=== PATIENT | male | born 1945 | race Caucasian/White ===

== ENCOUNTER 2019-07-31 19:15 | Emergency (ER) | payer MEDICARE ==
[2019-07-31] MEDS ORDERED: NITROGLYCERIN SUBLINGUAL 0.4 MG BOTTLE OF 25. SL PRN (19:45)
[2019-07-31] MEDS ORDERED: ASPIRIN CHEWABLE 81 MG TABLET. PO ONE (19:45)
[2019-07-31 19:46] LABS: BASO % 1 % (0-3); EOS # 0.2 x10^3/uL (0.0-0.7); EOS % 2 % (0-3); HEMOGLOBIN 14.1 g/dL (13.0-17.5); LYMPH # 2.2 x10^3/uL (1.0-4.8); LYMPH % 28 % (24-48); MEAN CORPUSCULAR HEMOGLOBIN 32 pg (25-35); MEAN CORPUSCULAR HGB CONC 35 g/dL (31-37); MEAN CORPUSCULAR VOLUME 92 fL (79-100); MONO # 0.6 x10^3/uL (0.0-1.1); MONO % 8 % (0-9); NEUT # 4.9 x10^3/uL (1.8-7.7); NEUT % 62 % (31-73); PLATELET COUNT 232 x10^3/uL (140-400); RED BLOOD COUNT 4.44 x10^6/uL (4.30-5.70); RED CELL DISTRIBUTION WIDTH 14.3 % (11.5-14.5); WHITE BLOOD COUNT 7.9 x10^3/uL (4.0-11.0)
--- NOTE | 2019-07-31 19:54 | PHYS DOC ---
Adult General Chief Complaint Chief Complaint: CHEST PAIN HPI HPI 73-year-old male presents to the emergency department with complaints of chest pain. Patient states pain started this morning around 9 AM, nitroglycerin was taken at that time with pain relief. He states recurrent pain this afternoon with nitroglycerin relieving pain. However tonight patient states pain returned without relief after 2 nitroglycerin. Patient denies any nausea, vomiting, diarrhea, shortness of breath. He does have history of CABG as well as stent placements. Nothing makes his pain worse, nothing makes his pain better. Patient states given the continued pain he called 911. Pain is located in the center of his chest, no radiation. Review of Systems Review of Systems Constitutional: Denies fever or chills [] Respiratory: Denies cough or shortness of breath [] Cardiovascular: No additional information not addressed in HPI [] GI: Denies abdominal pain, nausea, vomiting, bloody stools or diarrhea [] Musculoskeletal: Denies back pain or joint pain [] Neurologic: Denies headache, focal weakness or sensory changes [] All other systems were reviewed and found to be within normal limits, except as documented in this note. Current Medications Current Medications Current Medications Medications (Trade) Dose Ordered Sig/[place] Start Time Stop Time Status Last Admin Dose Admin Aspirin (Children'S Aspirin) 324 mg 1X ONCE 07/31/19 19:45 07/31/19 19:46 DC Nitroglycerin (Nitrostat) 0.4 mg PRN Q5MIN PRN 07/31/19 19:45 08/01/19 19:44 Allergies Allergies Allergies Coded Allergies Type Severity Reaction Last Updated Verified No Known Drug Allergies 07/31/19 No Physical Exam Physical Exam Constitutional: Well developed, well nourished, no acute distress, non-toxic appearance. [] HENT: Normocephalic, atraumatic, bilateral external ears normal, oropharynx moist, no oral exudates, nose normal. [] Eyes: PERRLA, EOMI, conjunctiva normal, no discharge. [] Cardiovascular:Heart rate regular rhythm, no murmur [] Lungs & Thorax: Bilateral breath sounds clear to auscultation [] Abdomen: Bowel sounds normal, soft, no tenderness, no masses, no pulsatile masses. [] Skin: Warm, dry, no erythema, no rash. [] Back: No tenderness, no CVA tenderness. [] Extremities: No tenderness, no edema. [] Neurologic: Alert and oriented X 3, no focal deficits noted. [] Psychologic: Affect normal, judgement normal, mood normal. [] Current Patient Data Vital Signs Vital Signs Date Time Temp Pulse Resp B/P (MAP) Pulse Ox O2 Delivery O2 Flow Rate FiO2 07/31/19 19:17 97.9 78 20 117/66 (83) 97 Room Air 97.9 Lab Values Laboratory Tests Test 07/31/19 19:25 White Blood Count 7.9 x10^3/uL (4.0-11.0) Red Blood Count 4.44 x10^6/uL (4.30-5.70) Hemoglobin 14.1 g/dL (13.0-17.5) Hematocrit 41.0 % (39.0-53.0) Mean Corpuscular Volume 92 fL (79-100) Mean Corpuscular Hemoglobin 32 pg (25-35) Mean Corpuscular Hemoglobin Concent 35 g/dL (31-37) Red Cell Distribution Width 14.3 % (11.5-14.5) Platelet Count 232 x10^3/uL (140-400) Neutrophils (%) (Auto) 62 % (31-73) Lymphocytes (%) (Auto) 28 % (24-48) Monocytes (%) (Auto) 8 % (0-9) Eosinophils (%) (Auto) 2 % (0-3) Basophils (%) (Auto) 1 % (0-3) Neutrophils # (Auto) 4.9 x10^3/uL (1.8-7.7) Lymphocytes # (Auto) 2.2 x10^3/uL (1.0-4.8) Monocytes # (Auto) 0.6 x10^3/uL (0.0-1.1) Eosinophils # (Auto) 0.2 x10^3/uL (0.0-0.7) Basophils # (Auto) 0.0 x10^3/uL (0.0-0.2) Sodium Level 140 mmol/L (136-145) Potassium Level 4.0 mmol/L (3.5-5.1) Chloride Level 102 mmol/L (98-107) Carbon Dioxide Level 34 mmol/L (21-32) H Anion Gap 4 (6-14) L Blood Urea Nitrogen 19 mg/dL (8-26) Creatinine 0.9 mg/dL (0.7-1.3) Estimated GFR (Cockcroft-Gault) 82.3 BUN/Creatinine Ratio 21 (6-20) H Glucose Level 107 mg/dL (70-99) H Calcium Level 8.8 mg/dL (8.5-10.1) Magnesium Level 2.1 mg/dL (1.8-2.4) Total Bilirubin 0.4 mg/dL (0.2-1.0) Aspartate Amino Transferase (AST) 30 U/L (15-37) Alanine Aminotransferase (ALT) 39 U/L (16-63) Alkaline Phosphatase 84 U/L (46-116) Troponin I Quantitative < 0.017 ng/mL (0.000-0.055) JB-Uoc-Q-Type Natriuretic Peptide 300 pg/mL (0-449) Total Protein 6.5 g/dL (6.4-8.2) Albumin 3.8 g/dL (3.4-5.0) Albumin/Globulin Ratio 1.4 (1.0-1.7) Laboratory Tests 07/31/19 19:25 Laboratory Tests 07/31/19 19:25 EKG EKG EKG reviewed, normal sinus rhythm, heart rate 78, normal axis, no STEMI interpretation time 1919[] Radiology/Procedures Radiology/Procedures [] Course & Med Decision Making Course & Med Decision Making Pertinent Labs and Imaging studies reviewed. (See chart for details) []73-year-old male presents to the emergency department with complaints of chest pain. Patient states pain started this morning around 9 AM, nitroglycerin was taken at that time with pain relief. He states recurrent pain this afternoon with nitroglycerin relieving pain. However tonight patient states pain returned without relief after 2 nitroglycerin. Patient denies any nausea, vomiting, diarrhea, shortness of breath. He does have history of CABG as well as stent placements. Nothing makes his pain worse, nothing makes his pain better. Patient states given the continued pain he called 911. Pain is located in the center of his chest, no radiation. Labs reviewed Trop negative x 1 HEART Score 5 Recommend staying in the hospital for observation however patient declines Patient will be asked to sign out against medical advice Discussed with family at bedside Dragon Disclaimer Dragon Disclaimer This electronic medical record was generated, in whole or in part, using a voice recognition dictation system. Departure Departure Impression: Primary Impression: Chest pain Additional Impression: CAD (coronary artery disease) Disposition: 07 AGAINST MEDICAL ADVICE Referrals: RAYNA BASHIR MD (PCP) Patient Instructions: Chest Pain (Nonspecific) Additional Instructions: Recommend follow up with PCP 3 - 5 days Return to the ER with worsening symptoms, intractable pain, fever, altered mental status Tylenol/Motrin as needed for pain Recommend admission however patient declines - will sign AMA form Problem Qualifiers Primary Impression: Chest pain Chest pain type: unspecified Qualified Codes: R07.9 - Chest pain, unspecified Additional Impression: CAD (coronary artery disease) Coronary Disease-Associated Artery/Lesion type: unspecified vessel or lesion type [place] vs. transplanted heart: unspecified whether [place] or transplanted heart Associated angina: with unspecified angina Qualified Codes: I25.119 - Atherosclerotic heart disease of [place] coronary artery with unspecified angina pectoris DARIUSZ SIMPSON MD Jul 31, 2019 19:54
[2019-07-31 19:57] LABS: CALCIUM 8.8 mg/dL (8.5-10.1); CREATININE 0.9 mg/dL (0.7-1.3); GFR 82.3
[2019-07-31 20:03] LABS: ALBUMIN 3.8 g/dL (3.4-5.0); ALBUMIN/GLOBULIN RATIO 1.4 (1.0-1.7); MAGNESIUM 2.1 mg/dL (1.8-2.4); TOTAL BILIRUBIN 0.4 mg/dL (0.2-1.0); TOTAL PROTEIN 6.5 g/dL (6.4-8.2)
--- NOTE | 2019-07-31 20:24 | RAD ---
AP chest. HISTORY: Chest pain AP view was taken of the chest. Lungs are clear. Heart is normal in size. There is no pleural effusion. There is mild scoliosis. Patient previous bypass. IMPRESSION: 1. No acute infiltrates or acute chest disease. Electronically signed by: Xavi Goldberg MD (07/31/2019 8:21 PM) [facility]
[2019-07-31 21:01] VITALS: BP 119/63
--- NOTE | 2019-08-01 06:51 | EKG ---
[facility] [address] [place] [address] Test Date: 2019-07-31 Test Time: 19:20:10 Pat Name: CHA DODGE Department: Room: Gender: M [employer]: : 1945 Requested By: DARIUSZ SIMPSON Order Number: [id number] Reading MD: Measurements Intervals Gypsy Rate: 77 P: 64 CT: 146 QRS: 77 QRSD: 102 T: 98 QT: 382 QTc: 439 Interpretive Statements SINUS RHYTHM NON SPECIFIC T ABNORMALITY BORDERLINE ECG No previous ECG available for comparison
== END 2019-07-31 21:25 | disposition left against medical advice (07) ==
LOC: ER 19:15
DX: I25.119 Atherosclerotic heart disease of native coronary artery with unspecified angina pectoris (principal); R07.89 Other chest pain; Z95.1 Presence of aortocoronary bypass graft; Z95.5 Presence of coronary angioplasty implant and graft
CPT/HCPCS: 36415; 71045; 80053; 83735; 83880; 84484; 85025; 93005; 99285-25

== ENCOUNTER 2021-03-24 12:00 | Inpatient (IN) | payer MEDICARE ==
[~2021-03-24] VITALS: Ht 175.3 cm; Wt 56.9 kg
--- NOTE | 2021-03-24 12:35 | PHYS DOC ---
Past Medical History Past Medical History: CAD Past Surgical History: Other Additional Past Surgical Histo: CABG Smoking Status: Current Every Day Smoker Alcohol Use: None General Adult EDM: Chief Complaint: FEVER HPI: HPI: 75-year-old male presents to the emergency department complaining of chest pain that was episodic and occurred around 0 700 this morning and was transient. He reports the pain subsided after few minutes. He reports deep breathing made the pain worse. He currently does not have chest pain and denies any further episodes of chest pain after this initial occurrence at 7 AM. She has a history of CABG, CAD, everyday smoking, chronic shortness of breath. The patient denies radiation of pain, sweating, shortness of air, nausea, vomiting, palpitations or dizziness. The patient denies any history of blood clots in his legs or his lungs, no personal history of any cancers or clotting disorders. He is adamantly refusing admission Review of Systems: Review of Systems: ROS otherwise negative except for what was mentioned in the HPI Heart Score: C/O Chest Pain: Yes HEART Score for Chest Pain: HEART Score for Chest Pain Response (Comments) Value History Moderately Suspicious 1 Age > 65 2 Risk Factors >3 Risk Factors or Hx CAD 2 Troponin < Normal Limit 0 Total 5 Allergies: Allergies: Allergies Coded Allergies Type Severity Reaction Last Updated Verified No Known Drug Allergies 03/24/21 No Physical Exam: PE: Constitutional: No acute distress, non-toxic appearance. HENT: Atraumatic, bilateral external ears normal, nose normal. Eyes: PERRLA, EOMI, conjunctiva normal, no discharge. Neck: Normal range of motion, supple, no stridor. Cardiovascular: Heart rate regular rhythm. 2+ radial pulses Lungs & Thorax: No respiratory distress, symmetrical expansion. Bilateral breath sounds clear to auscultation Abdomen: Soft, no tenderness Skin: Warm, dry. Extremities: No tenderness, no cyanosis, ROM intact, no edema. Neurologic: Alert and oriented X 3, normal motor function, normal sensory function, no focal deficits noted. Non ataxic gait. GCS 15. Psychologic: Affect normal, judgment normal, mood normal. Current Patient Data: Labs: Laboratory Tests Test 03/24/21 13:12 White Blood Count 7.7 x10^3/uL (4.0-11.0) Red Blood Count 4.78 x10^6/uL (4.30-5.70) Hemoglobin 14.8 g/dL (13.0-17.5) Hematocrit 43.4 % (39.0-53.0) Mean Corpuscular Volume 91 fL (79-100) Mean Corpuscular Hemoglobin 31 pg (25-35) Mean Corpuscular Hemoglobin Concent 34 g/dL (31-37) Red Cell Distribution Width 14.5 % (11.5-14.5) Platelet Count 165 x10^3/uL (140-400) Neutrophils (%) (Auto) 85 % (31-73) Lymphocytes (%) (Auto) 9 % (24-48) Monocytes (%) (Auto) 6 % (0-9) Eosinophils (%) (Auto) 1 % (0-3) Basophils (%) (Auto) 1 % (0-3) Neutrophils # (Auto) 6.5 x10^3/uL (1.8-7.7) Lymphocytes # (Auto) 0.7 x10^3/uL (1.0-4.8) Monocytes # (Auto) 0.4 x10^3/uL (0.0-1.1) Eosinophils # (Auto) 0.0 x10^3/uL (0.0-0.7) Basophils # (Auto) 0.1 x10^3/uL (0.0-0.2) D-Dimer (Missy) 0.43 ug/mlFEU (0.00-0.50) Sodium Level 140 mmol/L (136-145) Potassium Level 4.1 mmol/L (3.5-5.1) Chloride Level 104 mmol/L (98-107) Carbon Dioxide Level 28 mmol/L (21-32) Anion Gap 8 (6-14) Blood Urea Nitrogen 23 mg/dL (8-26) Creatinine 0.9 mg/dL (0.7-1.3) Estimated GFR (Cockcroft-Gault) 81.8 Glucose Level 104 mg/dL (70-99) Calcium Level 8.8 mg/dL (8.5-10.1) Troponin I Quantitative < 0.017 ng/mL (0.000-0.055) KO-Gsv-P-Type Natriuretic Peptide 545 pg/mL (0-449) Vital Signs: Vital Signs Date Time Temp Pulse Resp B/P (MAP) Pulse Ox O2 Delivery O2 Flow Rate FiO2 03/24/21 12:04 100.6 122 22 150/71 94 Room Air 100.6 EKG: EKG: Sinus tachycardia rate of 120, no ST-T wave changes, no ectopic beats, normal axis, normal FL, QRS, and QTc intervals. Impression: Sinus tachycardia, no STEMI interpreted by Geraldine araiza D.O. Radiology/Procedures: Radiology/Procedures: PROCEDURE: PORTABLE CHEST 1V XR CHEST 1V CLINICAL INDICATIONS: Reason: chest pain / Spl. Instructions: / History: COMPARISON: July 31, 2019. Findings: Medial right upper lobe lung infiltrate is seen. No new lung infiltrate is seen on the left side. No pleural effusion or pneumothorax is apparent. Hyperinflation is seen consistent with COPD. A sternotomy is evident. The heart size, pulmonary vasculature, mediastinum and both raheel are stable. IMPRESSION: Medial right upper lobe lung infiltrate. Electronically signed by: Elijah Hart MD (03/24/2021 1:09 PM) Course & Med Decision Making: Course & Med Decision Making Patient with pneumonia in the right lung, no risk factors for HCAP, heart rate remained persistently tachycardic after gentle fluids in the emergency department. We will admit the patient to the hospital, family is in agreement with the plan. Patient was convinced by family to stay in the hospital for further care. Patient with negative D-dimer as above, low risk for PE given this. Patient be admitted to Dr. Nii Preciado - GERALDINE HODGE DO Procedure Category Date Status Time Vital Signs Monitoring ER 03/24/21 Transmitted 12:32 Blood Pressure ER 03/24/21 Transmitted Monitoring 12:32 Cardiac Monitoring ER 03/24/21 Transmitted 12:32 Basic Metabolic Panel LAB 03/24/21 Complete 12:32 Cbc W Autodiff LAB 03/24/21 Complete 12:32 D-Dimer LAB 03/24/21 Complete 12:32 Portable Chest 1v RAD 03/24/21 Resulted 12:32 Nt-Pro Bnp LAB 03/24/21 Complete 12:32 Troponini LAB 03/24/21 Complete 12:32 Troponini LAB 03/24/21 Complete 15:32 Troponini LAB 03/24/21 Logged 18:32 12 Lead Ekg EKG 03/24/21 In Process 12:33 Iv Ringers,Lactated PHA 03/24/21 Complete 500ml (Iv Lactated R 12:45 Iv Ringers,Lactated PHA 03/24/21 Complete 500ml (Iv Lactated R 14:00 Sars Cov2 (Laquita) LAB 03/24/21 In Process 13:58 Sars Antigen Ann-Marie Rapid LAB 03/24/21 Logged 13:58 Fentanyl Pf Vial PHA 03/24/21 Complete (Fentanyl 2ml Vial) 15:30 Azithrmycn 500mg Ivpb PHA 03/24/21 In Process For Omni (Zithroma 16:30 Lactic Acid With LAB 03/24/21 Logged Reflex 16:18 Blood Culture CASTRO 03/24/21 Logged 16:18 Iv Ringers,Lactated PHA 03/24/21 In Process 500ml (Iv Lactated R 16:30 Er Bridge Order ADT 03/24/21 Transmitted 16:21 Code Status CODE 03/24/21 Transmitted 16:21 Vital Signs, Per Unit TRINI 03/24/21 In Process Protocol 16:21 Regular DIET 03/24/21 Transmitted Dinner Ambulate With TRINI 03/24/21 In Process Assistance 16:21 Cbc W Autodiff LAB 03/25/21 Verified 06:00 Basic Metabolic Panel LAB 03/25/21 Verified 06:00 Ondansetron Pf PHA 03/24/21 In Process (Zofran) 16:30 Fentanyl Pf Vial PHA 03/24/21 In Process (Fentanyl 2ml Vial) 16:30 Acetaminophen PHA 03/24/21 In Process (Tylenol) 16:30 Consult Physician By CONS 03/24/21 Transmitted Name 16:21 Ceftriaxone Iv Push PHA 03/24/21 In Process (Rocephin) 16:30 Departure Departure Impression: Primary Impression: Community acquired pneumonia Disposition: ADMITTED INPATIENT Admitting Physician: BECKA Chavez) Condition: STABLE Referrals: RAYNA BASHIR MD (PCP) GERALDINE HODGE DO Mar 24, 2021 12:35
[2021-03-24] MEDS ORDERED: IV RINGERS,LACTATED 500ML 500 ML IV ONE ×3 (12:45→16:30)
--- NOTE | 2021-03-24 13:11 | RAD ---
XR CHEST 1V CLINICAL INDICATIONS: Reason: chest pain / Spl. Instructions: / History: COMPARISON: July 31, 2019. Findings: Medial right upper lobe lung infiltrate is seen. No new lung infiltrate is seen on the left side. No pleural effusion or pneumothorax is apparent. Hyperinflation is seen consistent with COPD. A sternotomy is evident. The heart size, pulmonary vasculature, mediastinum and both raheel are stable. IMPRESSION: Medial right upper lobe lung infiltrate. Electronically signed by: Elijah Hart MD (03/24/2021 1:09 PM) [id number]
[2021-03-24 13:20] LABS: BASO # 0.1 x10^3/uL (0.0-0.2); BASO % 1 % (0-3); EOS % 1 % (0-3); HEMATOCRIT 43.4 % (39.0-53.0); HEMOGLOBIN 14.8 g/dL (13.0-17.5); LYMPH # 0.7 x10^3/uL (1.0-4.8); LYMPH % 9 % (24-48); MEAN CORPUSCULAR HEMOGLOBIN 31 pg (25-35); MEAN CORPUSCULAR HGB CONC 34 g/dL (31-37); MEAN CORPUSCULAR VOLUME 91 fL (79-100); MONO # 0.4 x10^3/uL (0.0-1.1); MONO % 6 % (0-9); NEUT # 6.5 x10^3/uL (1.8-7.7); NEUT % 85 % (31-73); PLATELET COUNT 165 x10^3/uL (140-400); RED BLOOD COUNT 4.78 x10^6/uL (4.30-5.70); RED CELL DISTRIBUTION WIDTH 14.5 % (11.5-14.5); WHITE BLOOD COUNT 7.7 x10^3/uL (4.0-11.0)
[2021-03-24 13:35] LABS: CALCIUM 8.8 mg/dL (8.5-10.1); CREATININE 0.9 mg/dL (0.7-1.3); GFR 81.8; POTASSIUM 4.1 mmol/L (3.5-5.1)
[2021-03-24] MEDS ORDERED: fentaNYL PF VIAL 100 MCG/2 ML VIAL ONE (15:29)
[2021-03-24] MEDS ORDERED: fentaNYL PF VIAL 100 MCG/2 ML VIAL IVP ONE (15:30)
[2021-03-24] MEDS ORDERED: ACETAMINOPHEN 500 MG TABLET PO ONE (16:30)
[2021-03-24] MEDS ORDERED: ACETAMINOPHEN 325 MG TABLET. PO PRN (16:30)
[2021-03-24] MEDS ORDERED: ONDANSETRON PF 4 MG/2 ML VIAL. IVP PRN (16:30)
[2021-03-24] MEDS ORDERED: fentaNYL PF VIAL 100 MCG/2 ML VIAL IVP PRN (16:30)
[2021-03-24] MEDS ORDERED: AZITHRMYCN 500MG IVPB FOR OMNI 250 ML IV ONE (16:30)
[2021-03-24] MEDS ORDERED: cefTRIAXone IV Push 2 GM VIAL. IVP ONE (16:30)
[2021-03-24 18:26] VITALS: BP 96/63
--- NOTE | 2021-03-24 18:45 | HP ---
ADMIT DATE: 03/24/2021 CHIEF COMPLAINT: Shortness of breath and cough. HISTORY OF PRESENT ILLNESS: The patient is a pleasant 75-year-old male who presented to the ER with shortness of breath and cough. It has been occurring since 7:00 this morning. He increased his home meds, but has not working. The pain makes it worse. He does have associated chest pain, rated at 6/10. The patient does have a history of bypass surgery. We did imaging that showing he has pneumonia in the right middle lobe. His COVID test is negative. I discussed the case with ER physician and the patient's correspondence transcriber, his niece and she is here with him and seems to be good support for him. We are going admit the patient, give him IV antibiotics and breathing treatments, oxygen. 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 ALLERGIES: None. FAMILY HISTORY: Diabetes. SOCIAL HISTORY: He smokes. No drink or drugs. MEDICATIONS: Reviewed, please refer to the MRAD. REVIEW OF SYSTEMS: Unable to obtain. The patient is now sedated. We did give him some pain medicine, some fentanyl here in the ER. PHYSICAL EXAMINATION: VITALS: Within normal limits and are stable. GENERAL: He is sedated. HEENT: Normal cephalic atraumatic, external auditory canals are patent EYES: Extraocular muscles are intact, pupils are equally round and reactive to light and accommodation MUSCULOSKELETAL: Well developed, well nourished, good range of motion ENDOCRINE: No thyromegaly was palpated LYMPHATICS: No cervical chain or axillary nodes were noted HEMATOPOIETIC: No bruising NECK: Supple, no JVD, no thyromegaly was noted. LUNGS: He has decreased breath sounds with some crackles on the right. HEART: RRR, S1, S2 present. Peripheral pulses intact, no obvious murmurs were noted. ABDOMEN: Soft, nontender. Positive bowel sounds no organomegaly, normal bowel sounds. EXTREMITIES: Without any cyanosis, clubbing, or edema. Pedal pulses intact, Homans sign is negative. NEUROLOGIC: He is sedated. PSYCHIATRIC: He is sedated. SKIN: No ulcerations or rashes, good skin turgor, no jaundice. VASCULAR: Good capillary refill, neurovascular bundle appears to be intact. LABORATORY DATA: White count 7, hemoglobin 14.8, platelets 165. Electrolytes are normal. Troponin is 0. BNP 545. COVID testing is negative. Chest x-ray shows middle right upper lobe infiltrate. ASSESSMENT AND PLAN: Pneumonia. The patient has been admitted. We will start IV antibiotics, breathing treatments, oxygen, home meds, deep venous thrombosis prophylaxis. Full code. Long-term prognosis is guarded. We will consult Pulmonary Medicine for a second opinion. YESSY DR: Graham TID: [id number]
[2021-03-24] MEDS ORDERED: PILO5TAB11 PO (20:42)
[2021-03-24] MEDS ORDERED: MELO15TA23 PO (20:42)
[2021-03-24] MEDS ORDERED: METO50TA6 PO (20:42)
[2021-03-24] MEDS ORDERED: TAMS0.4C97 PO (20:42)
[2021-03-24] MEDS ORDERED: ALBU1.25 NEB (20:42)
[2021-03-24] MEDS ORDERED: TIOT18CA IH (20:42)
[2021-03-24] MEDS ORDERED: BUPR150T21 PO (20:42)
[2021-03-24] MEDS ORDERED: NITR0.4T22 SL (20:42)
[2021-03-24] MEDS ORDERED: FLUT1BLS10 IH (20:42)
[2021-03-24] MEDS ORDERED: CHOL10004 PO (20:42)
[2021-03-24] MEDS ORDERED: FLUT9.9S NS (20:42)
[2021-03-24] MEDS ORDERED: ROSU20TA28 PO (20:42)
[2021-03-24] MEDS ORDERED: ALEN70TA71 PO (20:42)
[2021-03-24] MEDS ORDERED: OMEP20TA63 PO (20:42)
[2021-03-24] MEDS ORDERED: ASPI-630 PO (20:42)
[2021-03-24] MEDS: IPRATRPIUM/ALBUTEROL 0.5/2.5MG 3 ML NEBU. NEB SCH (22:28)
[2021-03-24 23:00] VITALS: BP 107/57
[2021-03-25] MEDS: ACETAMINOPHEN 325 MG TABLET. PO PRN ×2 (00:39→21:45)
[2021-03-25 03:00] VITALS: BP 100/55
[2021-03-25 06:20] LABS: BASO % 0 % (0-3); EOS % 0 % (0-3); HEMATOCRIT 40.1 % (39.0-53.0); HEMOGLOBIN 13.7 g/dL (13.0-17.5); LYMPH # 0.6 x10^3/uL (1.0-4.8); LYMPH % 21 % (24-48); MEAN CORPUSCULAR HEMOGLOBIN 31 pg (25-35); MEAN CORPUSCULAR HGB CONC 34 g/dL (31-37); MEAN CORPUSCULAR VOLUME 91 fL (79-100); MONO # 0.2 x10^3/uL (0.0-1.1); MONO % 6 % (0-9); NEUT # 1.9 x10^3/uL (1.8-7.7); NEUT % 72 % (31-73); PLATELET COUNT 146 x10^3/uL (140-400); RED CELL DISTRIBUTION WIDTH 15.1 % (11.5-14.5); WHITE BLOOD COUNT 2.6 x10^3/uL (4.0-11.0)
[2021-03-25 06:44] LABS: CALCIUM 8.3 mg/dL (8.5-10.1); CREATININE 1.2 mg/dL (0.7-1.3); GFR 58.7; POTASSIUM 4.2 mmol/L (3.5-5.1)
[2021-03-25 07:00] VITALS: BP 109/66
[2021-03-25] MEDS: BUDESONIDE 0.5 MG/2 ML NEBU. NEB SCH ×2 (08:01→20:14)
[2021-03-25] MEDS: IPRATRPIUM/ALBUTEROL 0.5/2.5MG 3 ML NEBU. NEB SCH ×4 (08:01→20:15)
[2021-03-25] MEDS: PILOCARPINE 5 MG TABLET. PO SCH ×3 (08:34→21:45)
[2021-03-25] MEDS: buPROPion XL 150 MG TAB.ER.24H. PO SCH ×2 (08:34→21:46)
[2021-03-25] MEDS: PANTOPRAZOLE 40 MG TABLET.DR. PO SCH (08:35)
[2021-03-25] MEDS: MELOXICAM 7.5 MG TABLET PO SCH (08:35)
[2021-03-25] MEDS: CHOLECALCIFEROL (VITAMIN D3) 1,000 UNIT TABLET PO SCH (08:35)
[2021-03-25] MEDS: ASPIRIN CHEWABLE 81 MG TABLET. PO SCH (08:35)
[2021-03-25] MEDS: FLUTICASONE 50MCG/NASAL SPRAY 16GM BOTTLE. NS SCH (08:37)
[2021-03-25] MEDS ORDERED: NON FORMULARY ITEM (Albuterol Sulfate (Albuterol Sulfate Neb Soln) 1 VIAL) NEB SCH (09:00)
[2021-03-25] MEDS ORDERED: NON FORMULARY ITEM (Tiotropium Bromide (Spiriva) 1 CAP) IH SCH (09:00)
--- NOTE | 2021-03-25 09:54 | PDOC ---
PROGRESS NOTES Date of Service: DATE: 03/25/21 TIME: 09:52 Chief Complaint Chief Complaint ASSESSMENT AND PLAN: Pneumonia. PLAN admitted. IV antibiotics, breathing treatments, oxygen support, home meds, deep venous thrombosis prophylaxis. Full code. Long-term prognosis is guarded. consult Pulmonary Medicine History of Present Illness History of Present Illness CHIEF COMPLAINT: Shortness of breath and cough. HISTORY OF PRESENT ILLNESS: 75-year-old male who presented to the ER with shortness of breath and cough. It has been occurring since 7:00 9-2 He increased his home meds, but has not working. The pain makes it worse. He does have associated chest pain, rated at 6/10. The patient does have a history of bypass surgery. We did imaging that showing he has pneumonia in the right middle lobe. His COVID test is negative. 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 ALLERGIES: None. FAMILY HISTORY: Diabetes. SOCIAL HISTORY: He smokes. No drink or drugs. MEDICATIONS: Reviewed, please refer to the MRAD. REVIEW OF SYSTEMS: Unable to obtain. Vitals Vitals Vital Signs Date Time Temp Pulse Resp B/P (MAP) Pulse Ox O2 Delivery O2 Flow Rate FiO2 03/25/21 08:36 Room Air 2.0 03/25/21 08:05 91 03/25/21 07:00 98.4 110 18 109/66 (80) 98.4 Physical Exam Physical Exam GENERAL: He is sedated. HEENT: Normal cephalic atraumatic, external auditory canals are patent EYES: Extraocular muscles are intact, pupils are equally round and reactive to light and accommodation MUSCULOSKELETAL: Well developed, well nourished, good range of motion ENDOCRINE: No thyromegaly was palpated LYMPHATICS: No cervical chain or axillary nodes were noted HEMATOPOIETIC: No bruising NECK: Supple, no JVD, no thyromegaly was noted. LUNGS: He has decreased breath sounds with some crackles on the right. HEART: RRR, S1, S2 present. Peripheral pulses intact, no obvious murmurs were noted. ABDOMEN: Soft, nontender. Positive bowel sounds no organomegaly, normal bowel sounds. EXTREMITIES: Without any cyanosis, clubbing, or edema. Pedal pulses intact, Homans sign is negative. NEUROLOGIC: He is sedated. PSYCHIATRIC: He is sedated. SKIN: No ulcerations or rashes, good skin turgor, no jaundice. VASCULAR: Good capillary refill, neurovascular bundle appears to be intact. Extremities: No cyanosis Labs LABS talk about your own wishes for healthcare in case youre ever not able to tell your loved ones or healthcare team what your wishes are. If you became really sick tomorrow, would your loved ones or healthcare team know what your wishes were? Here are some examples of different sets of goals and health care directives for your conversations: My wish is to use all medical therapies including resuscitation (such as CPR) and artificial life-sustaining treatments (such as machines and medicine) in an intensive care unit, to keep me alive if at all possible. My wish is to live as long as possible, but I dont want attempts to bring me back to life if my heart and breathing stop. I would like full medical care but without using resuscitation or artificial life-sustaining intensive treatments, if these are unlikely to make me live longer or restore me to a certain quality of life. I will accept treatments that try to fix medical problems, but if Im not getting better or going to have a certain quality of life, I would want to switch to focusing only on my comfort and letting my happen naturally. My wish is for healthcare to focus on my comfort and lessen suffering. I would like medical care that focuses only on my quality of life and that allows me to naturally. Consider: What does a good quality of life mean for me? For many people, it is the ability to live independently and tell their own story. I may define it differently. Under what circumstances would I not want to be kept alive by medical treatments, resuscitation, or intensive care? What kind of changes to my health or life might make me change my mind? If I clearly am facing the last chapter of my life, how do I want the story to end? Who do I want to speak for me if I cant speak for myself? Do they und erstand my preferences? Are they willing to assume the role of my Durable Power of Pin Inserter Regulator? Can I change my Goals of Care Designation? Yes, your Goals of Care Designation can be changed at any time. It should be reviewed if: your health condition changes your circumstances change (such as new understanding) you are transferred or admitted to another healthcare setting dpoa review, to pt portal 16 min and question review Laboratory Tests Test 03/24/21 13:12 03/24/21 15:35 03/24/21 16:05 03/24/21 17:00 White Blood Count 7.7 x10^3/uL (4.0-11.0) Red Blood Count 4.78 x10^6/uL (4.30-5.70) Hemoglobin 14.8 g/dL (13.0-17.5) Hematocrit 43.4 % (39.0-53.0) Mean Corpuscular Volume 91 fL (79-100) Mean Corpuscular Hemoglobin 31 pg (25-35) Mean Corpuscular Hemoglobin Concent 34 g/dL (31-37) Red Cell Distribution Width 14.5 % (11.5-14.5) Platelet Count 165 x10^3/uL (140-400) Neutrophils (%) (Auto) 85 % (31-73) Lymphocytes (%) (Auto) 9 % (24-48) Monocytes (%) (Auto) 6 % (0-9) Eosinophils (%) (Auto) 1 % (0-3) Basophils (%) (Auto) 1 % (0-3) Neutrophils # (Auto) 6.5 x10^3/uL (1.8-7.7) Lymphocytes # (Auto) 0.7 x10^3/uL (1.0-4.8) Monocytes # (Auto) 0.4 x10^3/uL (0.0-1.1) Eosinophils # (Auto) 0.0 x10^3/uL (0.0-0.7) Basophils # (Auto) 0.1 x10^3/uL (0.0-0.2) D-Dimer (Missy) 0.43 ug/mlFEU (0.00-0.50) Sodium Level 140 mmol/L (136-145) Potassium Level 4.1 mmol/L (3.5-5.1) Chloride Level 104 mmol/L (98-107) Carbon Dioxide Level 28 mmol/L (21-32) Anion Gap 8 (6-14) Blood Urea Nitrogen 23 mg/dL (8-26) Creatinine 0.9 mg/dL (0.7-1.3) Estimated GFR (Cockcroft-Gault) 81.8 Glucose Level 104 mg/dL (70-99) Calcium Level 8.8 mg/dL (8.5-10.1) Troponin I Quantitative < 0.017 ng/mL (0.000-0.055) < 0.017 ng/mL (0.000-0.055) MF-Tac-U-Type Natriuretic Peptide 545 pg/mL (0-449) SARS-CoV-2 Antigen (Rapid) Negative (NEGATIVE) Lactic Acid Level 2.1 mmol/L (0.4-2.0) Test 03/24/21 20:50 03/25/21 05:30 Lactic Acid Level 2.5 mmol/L (0.4-2.0) Troponin I Quantitative < 0.017 ng/mL (0.000-0.055) White Blood Count 2.6 x10^3/uL (4.0-11.0) Red Blood Count 4.40 x10^6/uL (4.30-5.70) Hemoglobin 13.7 g/dL (13.0-17.5) Hematocrit 40.1 % (39.0-53.0) Mean Corpuscular Volume 91 fL (79-100) Mean Corpuscular Hemoglobin 31 pg (25-35) Mean Corpuscular Hemoglobin Concent 34 g/dL (31-37) Red Cell Distribution Width 15.1 % (11.5-14.5) Platelet Count 146 x10^3/uL (140-400) Neutrophils (%) (Auto) 72 % (31-73) Lymphocytes (%) (Auto) 21 % (24-48) Monocytes (%) (Auto) 6 % (0-9) Eosinophils (%) (Auto) 0 % (0-3) Basophils (%) (Auto) 0 % (0-3) Neutrophils # (Auto) 1.9 x10^3/uL (1.8-7.7) Lymphocytes # (Auto) 0.6 x10^3/uL (1.0-4.8) Monocytes # (Auto) 0.2 x10^3/uL (0.0-1.1) Eosinophils # (Auto) 0.0 x10^3/uL (0.0-0.7) Basophils # (Auto) 0.0 x10^3/uL (0.0-0.2) Sodium Level 139 mmol/L (136-145) Potassium Level 4.2 mmol/L (3.5-5.1) Chloride Level 104 mmol/L (98-107) Carbon Dioxide Level 26 mmol/L (21-32) Anion Gap 9 (6-14) Blood Urea Nitrogen 35 mg/dL (8-26) Creatinine 1.2 mg/dL (0.7-1.3) Estimated GFR (Cockcroft-Gault) 58.7 Glucose Level 81 mg/dL (70-99) Calcium Level 8.3 mg/dL (8.5-10.1) Assessment and Plan Assessmemt and Plan Problems Medical Problems: (1) Community acquired pneumonia Status: Acute Comment Review of Relevant I have reviewed the following items adriane (where applicable) has been applied. Labs Laboratory Tests Test 03/24/21 13:12 03/24/21 15:35 03/24/21 16:05 03/24/21 17:00 White Blood Count 7.7 x10^3/uL (4.0-11.0) Red Blood Count 4.78 x10^6/uL (4.30-5.70) Hemoglobin 14.8 g/dL (13.0-17.5) Hematocrit 43.4 % (39.0-53.0) Mean Corpuscular Volume 91 fL (79-100) Mean Corpuscular Hemoglobin 31 pg (25-35) Mean Corpuscular Hemoglobin Concent 34 g/dL (31-37) Red Cell Distribution Width 14.5 % (11.5-14.5) Platelet Count 165 x10^3/uL (140-400) Neutrophils (%) (Auto) 85 % (31-73) Lymphocytes (%) (Auto) 9 % (24-48) Monocytes (%) (Auto) 6 % (0-9) Eosinophils (%) (Auto) 1 % (0-3) Basophils (%) (Auto) 1 % (0-3) Neutrophils # (Auto) 6.5 x10^3/uL (1.8-7.7) Lymphocytes # (Auto) 0.7 x10^3/uL (1.0-4.8) Monocytes # (Auto) 0.4 x10^3/uL (0.0-1.1) Eosinophils # (Auto) 0.0 x10^3/uL (0.0-0.7) Basophils # (Auto) 0.1 x10^3/uL (0.0-0.2) D-Dimer (Missy) 0.43 ug/mlFEU (0.00-0.50) Sodium Level 140 mmol/L (136-145) Potassium Level 4.1 mmol/L (3.5-5.1) Chloride Level 104 mmol/L (98-107) Carbon Dioxide Level 28 mmol/L (21-32) Anion Gap 8 (6-14) Blood Urea Nitrogen 23 mg/dL (8-26) Creatinine 0.9 mg/dL (0.7-1.3) Estimated GFR (Cockcroft-Gault) 81.8 Glucose Level 104 mg/dL (70-99) Calcium Level 8.8 mg/dL (8.5-10.1) Troponin I Quantitative < 0.017 ng/mL (0.000-0.055) < 0.017 ng/mL (0.000-0.055) KQ-Ggp-I-Type Natriuretic Peptide 545 pg/mL (0-449) SARS-CoV-2 Antigen (Rapid) Negative (NEGATIVE) Lactic Acid Level 2.1 mmol/L (0.4-2.0) Test 03/24/21 20:50 03/25/21 05:30 Lactic Acid Level 2.5 mmol/L (0.4-2.0) Troponin I Quantitative < 0.017 ng/mL (0.000-0.055) White Blood Count 2.6 x10^3/uL (4.0-11.0) Red Blood Count 4.40 x10^6/uL (4.30-5.70) Hemoglobin 13.7 g/dL (13.0-17.5) Hematocrit 40.1 % (39.0-53.0) Mean Corpuscular Volume 91 fL (79-100) Mean Corpuscular Hemoglobin 31 pg (25-35) Mean Corpuscular Hemoglobin Concent 34 g/dL (31-37) Red Cell Distribution Width 15.1 % (11.5-14.5) Platelet Count 146 x10^3/uL (140-400) Neutrophils (%) (Auto) 72 % (31-73) Lymphocytes (%) (Auto) 21 % (24-48) Monocytes (%) (Auto) 6 % (0-9) Eosinophils (%) (Auto) 0 % (0-3) Basophils (%) (Auto) 0 % (0-3) Neutrophils # (Auto) 1.9 x10^3/uL (1.8-7.7) Lymphocytes # (Auto) 0.6 x10^3/uL (1.0-4.8) Monocytes # (Auto) 0.2 x10^3/uL (0.0-1.1) Eosinophils # (Auto) 0.0 x10^3/uL (0.0-0.7) Basophils # (Auto) 0.0 x10^3/uL (0.0-0.2) Sodium Level 139 mmol/L (136-145) Potassium Level 4.2 mmol/L (3.5-5.1) Chloride Level 104 mmol/L (98-107) Carbon Dioxide Level 26 mmol/L (21-32) Anion Gap 9 (6-14) Blood Urea Nitrogen 35 mg/dL (8-26) Creatinine 1.2 mg/dL (0.7-1.3) Estimated GFR (Cockcroft-Gault) 58.7 Glucose Level 81 mg/dL (70-99) Calcium Level 8.3 mg/dL (8.5-10.1) Laboratory Tests Test 03/24/21 13:12 03/24/21 15:35 03/24/21 16:05 03/24/21 17:00 White Blood Count 7.7 x10^3/uL (4.0-11.0) Red Blood Count 4.78 x10^6/uL (4.30-5.70) Hemoglobin 14.8 g/dL (13.0-17.5) Hematocrit 43.4 % (39.0-53.0) Mean Corpuscular Volume 91 fL (79-100) Mean Corpuscular Hemoglobin 31 pg (25-35) Mean Corpuscular Hemoglobin Concent 34 g/dL (31-37) Red Cell Distribution Width 14.5 % (11.5-14.5) Platelet Count 165 x10^3/uL (140-400) Neutrophils (%) (Auto) 85 % (31-73) Lymphocytes (%) (Auto) 9 % (24-48) Monocytes (%) (Auto) 6 % (0-9) Eosinophils (%) (Auto) 1 % (0-3) Basophils (%) (Auto) 1 % (0-3) Neutrophils # (Auto) 6.5 x10^3/uL (1.8-7.7) Lymphocytes # (Auto) 0.7 x10^3/uL (1.0-4.8) Monocytes # (Auto) 0.4 x10^3/uL (0.0-1.1) Eosinophils # (Auto) 0.0 x10^3/uL (0.0-0.7) Basophils # (Auto) 0.1 x10^3/uL (0.0-0.2) D-Dimer (Missy) 0.43 ug/mlFEU (0.00-0.50) Sodium Level 140 mmol/L (136-145) Potassium Level 4.1 mmol/L (3.5-5.1) Chloride Level 104 mmol/L (98-107) Carbon Dioxide Level 28 mmol/L (21-32) Anion Gap 8 (6-14) Blood Urea Nitrogen 23 mg/dL (8-26) Creatinine 0.9 mg/dL (0.7-1.3) Estimated GFR (Cockcroft-Gault) 81.8 Glucose Level 104 mg/dL (70-99) Calcium Level 8.8 mg/dL (8.5-10.1) Troponin I Quantitative < 0.017 ng/mL (0.000-0.055) < 0.017 ng/mL (0.000-0.055) WN-Sjn-Q-Type Natriuretic Peptide 545 pg/mL (0-449) SARS-CoV-2 Antigen (Rapid) Negative (NEGATIVE) Lactic Acid Level 2.1 mmol/L (0.4-2.0) Test 03/24/21 20:50 03/25/21 05:30 Lactic Acid Level 2.5 mmol/L (0.4-2.0) Troponin I Quantitative < 0.017 ng/mL (0.000-0.055) White Blood Count 2.6 x10^3/uL (4.0-11.0) Red Blood Count 4.40 x10^6/uL (4.30-5.70) Hemoglobin 13.7 g/dL (13.0-17.5) Hematocrit 40.1 % (39.0-53.0) Mean Corpuscular Volume 91 fL (79-100) Mean Corpuscular Hemoglobin 31 pg (25-35) Mean Corpuscular Hemoglobin Concent 34 g/dL (31-37) Red Cell Distribution Width 15.1 % (11.5-14.5) Platelet Count 146 x10^3/uL (140-400) Neutrophils (%) (Auto) 72 % (31-73) Lymphocytes (%) (Auto) 21 % (24-48) Monocytes (%) (Auto) 6 % (0-9) Eosinophils (%) (Auto) 0 % (0-3) Basophils (%) (Auto) 0 % (0-3) Neutrophils # (Auto) 1.9 x10^3/uL (1.8-7.7) Lymphocytes # (Auto) 0.6 x10^3/uL (1.0-4.8) Monocytes # (Auto) 0.2 x10^3/uL (0.0-1.1) Eosinophils # (Auto) 0.0 x10^3/uL (0.0-0.7) Basophils # (Auto) 0.0 x10^3/uL (0.0-0.2) Sodium Level 139 mmol/L (136-145) Potassium Level 4.2 mmol/L (3.5-5.1) Chloride Level 104 mmol/L (98-107) Carbon Dioxide Level 26 mmol/L (21-32) Anion Gap 9 (6-14) Blood Urea Nitrogen 35 mg/dL (8-26) Creatinine 1.2 mg/dL (0.7-1.3) Estimated GFR (Cockcroft-Gault) 58.7 Glucose Level 81 mg/dL (70-99) Calcium Level 8.3 mg/dL (8.5-10.1) Microbiology 03/24/21 Blood Culture - Final, Complete Medications Current Medications Ringer's Solution 500 ml @ 500 mls/hr 1X ONCE IV Last administered on 03/24/21at 12:45; Start 03/24/21 at 12:45; Stop 03/24/21 at 13:44; Status DC Ringer's Solution 500 ml @ 500 mls/hr 1X ONCE IV Last administered on 03/24/21at 14:00; Start 03/24/21 at 14:00; Stop 03/24/21 at 14:59; Status DC Fentanyl Citrate (Fentanyl 2ml Vial) 75 mcg 1X ONCE IVP Last administered on 03/24/21at 15:30; Start 03/24/21 at 15:30; Stop 03/24/21 at 15:31; Status DC Fentanyl Citrate (Fentanyl 2ml Vial) 100 mcg STK-MED ONCE .ROUTE ; Start 03/24/21 at 15:29; Stop 03/24/21 at 15:29; Status DC Ceftriaxone Sodium (Rocephin) 2 gm 1X ONCE IVP Last administered on 03/24/21at 16:30; Start 03/24/21 at 16:30; Stop 03/24/21 at 16:31; Status DC Azithromycin 250 ml @ 250 mls/hr 1X ONCE IV Last administered on 03/24/21at 16:30; Start 03/24/21 at 16:30; Stop 03/24/21 at 17:29; Status DC Ringer's Solution 500 ml @ 500 mls/hr 1X ONCE IV Last administered on 03/24/21at 16:30; Start 03/24/21 at 16:30; Stop 03/24/21 at 17:29; Status DC Ondansetron HCl (Zofran) 4 mg PRN Q8HRS PRN IVP NAUSEA/VOMITING; Start 03/24/21 at 16:30; Stop 03/25/21 at 16:29 Fentanyl Citrate (Fentanyl 2ml Vial) 50 mcg PRN Q2HR PRN IVP PAIN Last administered on 03/25/21at 08:36; Start 03/24/21 at 16:30; Stop 03/25/21 at 16:29 Acetaminophen (Tylenol) 650 mg PRN Q4HRS PRN PO FEVER > 100.3'F; Start 03/24/21 at 16:30; Stop 03/24/21 at 16:27; Status DC Acetaminophen (Tylenol) 1,000 mg 1X ONCE PO Last administered on 03/24/21at 16:30; Start 03/24/21 at 16:30; Stop 03/24/21 at 16:31; Status DC Ceftriaxone Sodium (Rocephin) 1 gm Q24H IVP ; Start 03/25/21 at 17:00 Albuterol/ Ipratropium (Duoneb) 3 ml RTQID NEB Last administered on 03/25/21at 08:01; Start 03/24/21 at 20:00 Acetaminophen (Tylenol) 650 mg PRN Q6HRS PRN PO MILD PAIN / TEMP > 100.3'F Last administered on 03/25/21at 00:39; Start 03/24/21 at 23:45 Aspirin (Aspirin Chewable) 81 mg DAILY PO Last administered on 03/25/21at 08:35; Start 03/25/21 at 09:00 Bupropion HCl (Wellbutrin Xl) 150 mg BID PO Last administered on 03/25/21at 08:34; Start 03/25/21 at 09:00 Vitamin D (Vitamin D3) 2,000 unit DAILY PO Last administered on 03/25/21at 08:35; Start 03/25/21 at 09:00 Metoprolol Tartrate (Lopressor) 50 mg BID PO ; Start 03/25/21 at 09:00 Tamsulosin HCl (Flomax) 0.4 mg HS PO ; Start 03/25/21 at 21:00 Non-Formulary Medication (Albuterol Sulfate (Albuterol Sulfate Neb Soln)) 1 vial BID NEB ; Start 03/25/21 at 09:00; Stop 03/25/21 at 00:23; Status DC Non-Formulary Medication (Alendronate Sodium ) 1 tab WEEKLY PO ; Start 03/31/21 at 09:00; Status UNV Budesonide (Pulmicort) 0.5 mg RTBID NEB Last administered on 03/25/21at 08:01; Start 03/25/21 at 08:00 Fluticasone Propionate (Flonase) 2 spray DAILY NS Last administered on 03/25/21at 08:37; Start 03/25/21 at 09:00 Meloxicam (Mobic) 15 mg DAILY PO Last administered on 03/25/21at 08:35; Start 03/25/21 at 09:00 Pantoprazole Sodium (Protonix) 40 mg DAILYAC PO Last administered on 03/25/21at 08:35; Start 03/25/21 at 07:30 Atorvastatin Calcium (Lipitor) 80 mg QHS PO ; Start 03/25/21 at 21:00 Non-Formulary Medication (Tiotropium [place] (Spiriva)) 1 cap DAILY IH ; Start 03/25/21 at 09:00; Status UNV [place] HCl (Salagen) 5 mg TID PO Last administered on 03/25/21at 08:34; Start 03/25/21 at 09:00 Active Scripts Active Reported NITROGLYCERIN SubLingual (Nitroglycerin) 0.4 Mg Tab.subl 1 Tab SL UD PRN 1st sign of attack; may repeat every 5 mins; if pain persists after 3 in 15 min, medical attention is recommended Albuterol Sulfate Neb Soln (Albuterol Sulfate) 1.25 Mg/3 Ml Vial.neb 1 Vial NEB BID Flonase Allergy Relief (Fluticasone Propionate) 9.9 Ml [place].susp 2 Sprays NS DAILY Wixela 500-50 [place]hub (Fluticasone Propion/Salmeterol) 1 Each Blst.w.dev 1 Each IH BID Spiriva (Tiotropium [place]) 18 Mcg Cap.w.dev 1 Cap IH DAILY Alendronate Sodium 70 Mg Tablet 1 Tab PO WEEKLY Prilosec Otc (Omeprazole Magnesium) 20 Mg Tablet.dr 1 Tab PO DAILY 30 Days Vitamin D3 (Vitamin D) 25 Mcg Tablet 50 Mcg PO DAILY 1,000 UNITS = 25 MCG Rosuvastatin Calcium 20 Mg Tablet 20 Mg PO HS Meloxicam 15 Mg Tablet 1 Tab PO DAILY 30 Days Metoprolol Tartrate 50 Mg Tablet 1 Tab PO BID Aspirin 81 Mg Tab.chew 1 Tab PO DAILY [place]agen (Pilocarpine Hcl) 5 Mg Tablet 1 Tab PO TID 30 Days Bupropion Xl (Bupropion Hcl) 150 Mg Tab.er.24h 1 Tab PO BID Flomax (Tamsulosin Hcl) 0.4 Mg Cap.er.24h 1 Cap PO HS Vitals/I & O Vital Sign - Last 24 Hours 03/24/21 03/24/21 03/24/21 03/24/21 12:04 14:01 15:30 15:35 Temp 100.6 100.6 Pulse 122 130 130 Resp 22 23 25 B/P (MAP) 150/71 149/70 (96) 158/79 (105) Pulse Ox 94 94 94 O2 Delivery Room Air Room Air Room Air Room Air 03/24/21 03/24/21 03/24/21 9/2/21 17:29 18:26 18:32 20:00 Temp 99.7 99.7 Pulse 120 127 Resp 18 B/P (MAP) 145/78 (100) 96/63 (74) Pulse Ox 95 90 O2 Delivery Nasal Cannula Room Air Nasal Cannula Room Air O2 Flow Rate 2.0 2.0 03/24/21 03/25/21 03/25/21 03/25/21 23:00 03:00 07:00 08:05 Temp 100.1 98.3 98.4 100.1 98.3 98.4 Pulse 119 105 110 Resp 18 18 18 B/P (MAP) 107/57 (74) 100/55 (70) 109/66 (80) Pulse Ox 91 94 92 91 O2 Delivery Nasal Cannula Nasal Cannula Nasal Cannula O2 Flow Rate 2.0 2.0 2.0 3.0 03/25/21 08:36 O2 Delivery Room Air O2 Flow Rate 2.0 Justicifation of Admission Dx: Justifications for Admission: Justification of Admission Dx: Yes Sepsis: Bacteremia CHANDA PAUL MD Mar 25, 2021 09:54
[2021-03-25 11:00] VITALS: BP 92/45
--- NOTE | 2021-03-25 12:47 | PDOC ---
PULMONARY PROGRESS NOTES DATE: 03/25/21 TIME: 12:46 Vitals Vital Signs Date Time Temp Pulse Resp B/P (MAP) Pulse Ox O2 Delivery O2 Flow Rate FiO2 03/25/21 11:46 91 3.0 03/25/21 08:36 Room Air 03/25/21 07:00 98.4 110 18 109/66 (80) 98.4 Labs Laboratory Tests Test 03/24/21 13:12 03/24/21 15:35 03/24/21 16:00 03/24/21 16:05 White Blood Count 7.7 x10^3/uL (4.0-11.0) Red Blood Count 4.78 x10^6/uL (4.30-5.70) Hemoglobin 14.8 g/dL (13.0-17.5) Hematocrit 43.4 % (39.0-53.0) Mean Corpuscular Volume 91 fL (79-100) Mean Corpuscular Hemoglobin 31 pg (25-35) Mean Corpuscular Hemoglobin Concent 34 g/dL (31-37) Red Cell Distribution Width 14.5 % (11.5-14.5) Platelet Count 165 x10^3/uL (140-400) Neutrophils (%) (Auto) 85 % (31-73) Lymphocytes (%) (Auto) 9 % (24-48) Monocytes (%) (Auto) 6 % (0-9) Eosinophils (%) (Auto) 1 % (0-3) Basophils (%) (Auto) 1 % (0-3) Neutrophils # (Auto) 6.5 x10^3/uL (1.8-7.7) Lymphocytes # (Auto) 0.7 x10^3/uL (1.0-4.8) Monocytes # (Auto) 0.4 x10^3/uL (0.0-1.1) Eosinophils # (Auto) 0.0 x10^3/uL (0.0-0.7) Basophils # (Auto) 0.1 x10^3/uL (0.0-0.2) D-Dimer (Missy) 0.43 ug/mlFEU (0.00-0.50) Sodium Level 140 mmol/L (136-145) Potassium Level 4.1 mmol/L (3.5-5.1) Chloride Level 104 mmol/L (98-107) Carbon Dioxide Level 28 mmol/L (21-32) Anion Gap 8 (6-14) Blood Urea Nitrogen 23 mg/dL (8-26) Creatinine 0.9 mg/dL (0.7-1.3) Estimated GFR (Cockcroft-Gault) 81.8 Glucose Level 104 mg/dL (70-99) Calcium Level 8.8 mg/dL (8.5-10.1) Troponin I Quantitative < 0.017 ng/mL (0.000-0.055) < 0.017 ng/mL (0.000-0.055) JK-Ver-G-Type Natriuretic Peptide 545 pg/mL (0-449) SARS-CoV-2 RNA (EDMOND) Negative (Negative) SARS-CoV-2 Antigen (Rapid) Negative (NEGATIVE) Test 03/24/21 17:00 03/24/21 20:50 03/25/21 05:30 Lactic Acid Level 2.1 mmol/L (0.4-2.0) 2.5 mmol/L (0.4-2.0) Troponin I Quantitative < 0.017 ng/mL (0.000-0.055) White Blood Count 2.6 x10^3/uL (4.0-11.0) Red Blood Count 4.40 x10^6/uL (4.30-5.70) Hemoglobin 13.7 g/dL (13.0-17.5) Hematocrit 40.1 % (39.0-53.0) Mean Corpuscular Volume 91 fL (79-100) Mean Corpuscular Hemoglobin 31 pg (25-35) Mean Corpuscular Hemoglobin Concent 34 g/dL (31-37) Red Cell Distribution Width 15.1 % (11.5-14.5) Platelet Count 146 x10^3/uL (140-400) Neutrophils (%) (Auto) 72 % (31-73) Lymphocytes (%) (Auto) 21 % (24-48) Monocytes (%) (Auto) 6 % (0-9) Eosinophils (%) (Auto) 0 % (0-3) Basophils (%) (Auto) 0 % (0-3) Neutrophils # (Auto) 1.9 x10^3/uL (1.8-7.7) Lymphocytes # (Auto) 0.6 x10^3/uL (1.0-4.8) Monocytes # (Auto) 0.2 x10^3/uL (0.0-1.1) Eosinophils # (Auto) 0.0 x10^3/uL (0.0-0.7) Basophils # (Auto) 0.0 x10^3/uL (0.0-0.2) Sodium Level 139 mmol/L (136-145) Potassium Level 4.2 mmol/L (3.5-5.1) Chloride Level 104 mmol/L (98-107) Carbon Dioxide Level 26 mmol/L (21-32) Anion Gap 9 (6-14) Blood Urea Nitrogen 35 mg/dL (8-26) Creatinine 1.2 mg/dL (0.7-1.3) Estimated GFR (Cockcroft-Gault) 58.7 Glucose Level 81 mg/dL (70-99) Calcium Level 8.3 mg/dL (8.5-10.1) Laboratory Tests Test 03/24/21 13:12 03/24/21 15:35 03/24/21 16:00 03/24/21 16:05 White Blood Count 7.7 x10^3/uL (4.0-11.0) Red Blood Count 4.78 x10^6/uL (4.30-5.70) Hemoglobin 14.8 g/dL (13.0-17.5) Hematocrit 43.4 % (39.0-53.0) Mean Corpuscular Volume 91 fL (79-100) Mean Corpuscular Hemoglobin 31 pg (25-35) Mean Corpuscular Hemoglobin Concent 34 g/dL (31-37) Red Cell Distribution Width 14.5 % (11.5-14.5) Platelet Count 165 x10^3/uL (140-400) Neutrophils (%) (Auto) 85 % (31-73) Lymphocytes (%) (Auto) 9 % (24-48) Monocytes (%) (Auto) 6 % (0-9) Eosinophils (%) (Auto) 1 % (0-3) Basophils (%) (Auto) 1 % (0-3) Neutrophils # (Auto) 6.5 x10^3/uL (1.8-7.7) Lymphocytes # (Auto) 0.7 x10^3/uL (1.0-4.8) Monocytes # (Auto) 0.4 x10^3/uL (0.0-1.1) Eosinophils # (Auto) 0.0 x10^3/uL (0.0-0.7) Basophils # (Auto) 0.1 x10^3/uL (0.0-0.2) D-Dimer (Missy) 0.43 ug/mlFEU (0.00-0.50) Sodium Level 140 mmol/L (136-145) Potassium Level 4.1 mmol/L (3.5-5.1) Chloride Level 104 mmol/L (98-107) Carbon Dioxide Level 28 mmol/L (21-32) Anion Gap 8 (6-14) Blood Urea Nitrogen 23 mg/dL (8-26) Creatinine 0.9 mg/dL (0.7-1.3) Estimated GFR (Cockcroft-Gault) 81.8 Glucose Level 104 mg/dL (70-99) Calcium Level 8.8 mg/dL (8.5-10.1) Troponin I Quantitative < 0.017 ng/mL (0.000-0.055) < 0.017 ng/mL (0.000-0.055) EL-Cru-R-Type Natriuretic Peptide 545 pg/mL (0-449) SARS-CoV-2 RNA (EDMOND) Negative (Negative) SARS-CoV-2 Antigen (Rapid) Negative (NEGATIVE) Test 03/24/21 17:00 03/24/21 20:50 03/25/21 05:30 Lactic Acid Level 2.1 mmol/L (0.4-2.0) 2.5 mmol/L (0.4-2.0) Troponin I Quantitative < 0.017 ng/mL (0.000-0.055) White Blood Count 2.6 x10^3/uL (4.0-11.0) Red Blood Count 4.40 x10^6/uL (4.30-5.70) Hemoglobin 13.7 g/dL (13.0-17.5) Hematocrit 40.1 % (39.0-53.0) Mean Corpuscular Volume 91 fL (79-100) Mean Corpuscular Hemoglobin 31 pg (25-35) Mean Corpuscular Hemoglobin Concent 34 g/dL (31-37) Red Cell Distribution Width 15.1 % (11.5-14.5) Platelet Count 146 x10^3/uL (140-400) Neutrophils (%) (Auto) 72 % (31-73) Lymphocytes (%) (Auto) 21 % (24-48) Monocytes (%) (Auto) 6 % (0-9) Eosinophils (%) (Auto) 0 % (0-3) Basophils (%) (Auto) 0 % (0-3) Neutrophils # (Auto) 1.9 x10^3/uL (1.8-7.7) Lymphocytes # (Auto) 0.6 x10^3/uL (1.0-4.8) Monocytes # (Auto) 0.2 x10^3/uL (0.0-1.1) Eosinophils # (Auto) 0.0 x10^3/uL (0.0-0.7) Basophils # (Auto) 0.0 x10^3/uL (0.0-0.2) Sodium Level 139 mmol/L (136-145) Potassium Level 4.2 mmol/L (3.5-5.1) Chloride Level 104 mmol/L (98-107) Carbon Dioxide Level 26 mmol/L (21-32) Anion Gap 9 (6-14) Blood Urea Nitrogen 35 mg/dL (8-26) Creatinine 1.2 mg/dL (0.7-1.3) Estimated GFR (Cockcroft-Gault) 58.7 Glucose Level 81 mg/dL (70-99) Calcium Level 8.3 mg/dL (8.5-10.1) Medications Active Scripts Medications Dose Route/Sig Max Daily Dose Days Date Category Dose Instructions NITROGLYCERIN SubLingual (Nitroglycerin) 0.4 Mg Tab.subl 1 Tab SL UD PRN 03/24/21 Reported 1st sign of attack; may repeat every 5 mins; if pain persists after 3 in 15 min, medical attention is recommended Albuterol Sulfate Neb Soln (Albuterol Sulfate) 1.25 Mg/3 Ml Vial.neb 1 Vial NEB BID 03/24/21 Reported Flonase Allergy Relief (Fluticasone Propionate) 9.9 Ml [place].susp 2 Sprays NS DAILY 03/24/21 Reported Wixela 500-50 Inhub (Fluticasone Propion/Salmeterol) 1 Each Blst.w.dev 1 Each IH BID 03/24/21 Reported Spiriva (Tiotropium [place]) 18 Mcg Cap.w.dev 1 Cap IH DAILY 03/24/21 Reported Alendronate Sodium 70 Mg Tablet 1 Tab PO WEEKLY 03/24/21 Reported Prilosec Otc (Omeprazole Magnesium) 20 Mg Tablet.dr 1 Tab PO DAILY 30 03/24/21 Reported Vitamin D3 (Vitamin D) 25 Mcg Tablet 50 Mcg PO DAILY 03/24/21 Reported 1,000 UNITS = 25 MCG Rosuvastatin Calcium 20 Mg Tablet 20 Mg PO HS 03/24/21 Reported Meloxicam 15 Mg Tablet 1 Tab PO DAILY 30 03/24/21 Reported Metoprolol Tartrate 50 Mg Tablet 1 Tab PO BID 03/24/21 Reported Aspirin 81 Mg Tab.chew 1 Tab PO DAILY 03/24/21 Reported Salagen (Pilocarpine Hcl) 5 Mg Tablet 1 Tab PO TID 30 03/24/21 Reported Bupropion Xl (Bupropion Hcl) 150 Mg Tab.er.24h 1 Tab PO BID 03/24/21 Reported Flomax (Tamsulosin Hcl) 0.4 Mg Cap.er.24h 1 Cap PO HS 03/24/21 Reported Impression . FULL NOTE DICTATED AGREE WITH CURRENT RX WILL CHECK CT CHEST CHARLES SMITH MD Mar 25, 2021 12:47
[2021-03-25] MEDS ORDERED: IOHEXOL 300 MG/ML 100ML VIAL. IV ONE (13:00)
[2021-03-25] MEDS ORDERED: CONTRAST GIVEN. MC PRN (13:00)
[2021-03-25] MEDS: METOPROLOL TART IMMED RELEASE 50 MG TABLET. PO SCH ×2 (13:19→21:46)
[2021-03-25] MEDS: AZITHROMYCIN 250 MG TABLET. PO SCH (13:19)
[2021-03-25] MEDS: LACTOBACILLUS RHAMNOSUS GG 1 CAPSULE. PO SCH ×2 (13:21→21:46)
[2021-03-25] MEDS: IV NORMAL SALINE 1000ML BAG 1,000 ML IV SCH (13:22)
[2021-03-25 15:00] VITALS: BP 97/50
--- NOTE | 2021-03-25 15:12 | RAD ---
Examination: CT chest with IV contrast HISTORY: History of infiltrates COMPARISON: None available Technique: Axial CT images of chest were performed with contrast. Coronal and sagittal reformats are performed. Exposure: One or more of the following individualized dose reduction techniques were utilized for thi s examination: 1. Automated exposure control 2. Adjustment of the mA and/or kV according to patient size 3. Use of iterative reconstruction technique FINDINGS: The heart size grossly appears unremarkable. Moderate aortic atherosclerosis. Coronary artery calcifi cations. Moderate bilateral lung emphysematous changes. There are multiple interstitial and airspace opacities identified in the right upper lobe and right lower lobe of the lung. The liver, spleen, adr enals grossly appears unremarkable. The stomach is mildly distended. Mild degenerative changes thoracic spine. IMPRESSION: 1. Multiple interstitial and airspace opacities identified in the right upper lobe and right lower lo be of the lung likely pneumonia or infiltrates. Follow-up to resolution. 2. Moderate bilateral lung emphysema. Electronically signed by: Eduin Montilla MD (03/25/2021 3:10 PM) [id number]
--- NOTE | 2021-03-25 16:28 | NUR ---
SS following for discharge planning. SS reviewed pt chart and discussed with pt RN. Pt is from home and is currently requiring oxygen at three liters nasal canula. COVID19 negative. Pt on IV Rocephin and PO Zithromax. SS will continue to follow for discharge planning.
--- NOTE | 2021-03-25 17:01 | PDOC ---
Infectious Disease Note Vital Sign Vital Signs Vital Signs Date Time Temp Pulse Resp B/P (MAP) Pulse Ox O2 Delivery O2 Flow Rate FiO2 03/25/21 15:44 93 3.0 03/25/21 13:20 Room Air 03/25/21 13:19 113 03/25/21 11:00 98.2 18 92/45 (61) 98.2 Physical Exam PHYSICAL EXAM GENERAL: He is sedated. HEENT: Normal cephalic atraumatic, external auditory canals are patent EYES: Extraocular muscles are intact, pupils are equally round and reactive to light and accommodation MUSCULOSKELETAL: Well developed, well nourished, good range of motion ENDOCRINE: No thyromegaly was palpated LYMPHATICS: No cervical chain or axillary nodes were noted HEMATOPOIETIC: No bruising NECK: Supple, no JVD, no thyromegaly was noted. LUNGS: He has decreased breath sounds with some crackles on the right. HEART: RRR, S1, S2 present. Peripheral pulses intact, no obvious murmurs were noted. ABDOMEN: Soft, nontender. Positive bowel sounds no organomegaly, normal bowel sounds. EXTREMITIES: Without any cyanosis, clubbing, or edema. Pedal pulses intact, Homans sign is negative. NEUROLOGIC: He is sedated. PSYCHIATRIC: He is sedated. SKIN: No ulcerations or rashes, good skin turgor, no jaundice. VASCULAR: Good capillary refill, neurovascular bundle appears to be intact. Labs Lab Laboratory Tests Test 03/24/21 20:50 03/25/21 05:30 Lactic Acid Level 2.5 mmol/L (0.4-2.0) Troponin I Quantitative < 0.017 ng/mL (0.000-0.055) White Blood Count 2.6 x10^3/uL (4.0-11.0) Red Blood Count 4.40 x10^6/uL (4.30-5.70) Hemoglobin 13.7 g/dL (13.0-17.5) Hematocrit 40.1 % (39.0-53.0) Mean Corpuscular Volume 91 fL (79-100) Mean Corpuscular Hemoglobin 31 pg (25-35) Mean Corpuscular Hemoglobin Concent 34 g/dL (31-37) Red Cell Distribution Width 15.1 % (11.5-14.5) Platelet Count 146 x10^3/uL (140-400) Neutrophils (%) (Auto) 72 % (31-73) Lymphocytes (%) (Auto) 21 % (24-48) Monocytes (%) (Auto) 6 % (0-9) Eosinophils (%) (Auto) 0 % (0-3) Basophils (%) (Auto) 0 % (0-3) Neutrophils # (Auto) 1.9 x10^3/uL (1.8-7.7) Lymphocytes # (Auto) 0.6 x10^3/uL (1.0-4.8) Monocytes # (Auto) 0.2 x10^3/uL (0.0-1.1) Eosinophils # (Auto) 0.0 x10^3/uL (0.0-0.7) Basophils # (Auto) 0.0 x10^3/uL (0.0-0.2) Sodium Level 139 mmol/L (136-145) Potassium Level 4.2 mmol/L (3.5-5.1) Chloride Level 104 mmol/L (98-107) Carbon Dioxide Level 26 mmol/L (21-32) Anion Gap 9 (6-14) Blood Urea Nitrogen 35 mg/dL (8-26) Creatinine 1.2 mg/dL (0.7-1.3) Estimated GFR (Cockcroft-Gault) 58.7 Glucose Level 81 mg/dL (70-99) Calcium Level 8.3 mg/dL (8.5-10.1) Micro Microbiology 03/24/21 Blood Culture - Final, Complete Objective Assessment pt seen, consult dictated Plan Plan of Care / KIKI DAMICO MD Mar 25, 2021 17:01
[2021-03-25] MEDS: cefTRIAXone IV Push 1 GM VIAL. IVP SCH (17:37)
[2021-03-25 19:00] VITALS: BP 124/65
--- NOTE | 2021-03-25 20:07 | CONS ---
DATE OF CONSULTATION: 03/25/2021 ATTENDING PHYSICIAN: Gregory Bales DO CONSULTING PHYSICIAN: Reynalod Bowen MD REASON FOR CONSULTATION: The patient is seen in pulmonary consultation at the request of Dr. Bales for hypoxemia and abnormal x-ray. HISTORY OF PRESENT ILLNESS: The patient is a 75-year-old vaccinated for COVID-19, presented with episodic episodes of chest discomfort. He also was short of breath with deep inspiration. His niece was concerned about his mental status. The patient was evaluated in the Emergency Department and underwent a chest x-ray, which revealed a right upper lobe infiltrate. I was asked to see him in consultation. His laboratory also revealed a white count that was low at 2.6. Serology for COVID-19 was negative. Electrolytes were noted. Lactic acid level initially was slightly elevated. The patient reports he normally uses oxygen at bedtime. He sees a physician at the [facility]. He also reports that he has had a previously abnormal CT chest. He was not clear exactly on the specific findings. Since he has been here, he has had a fever of 100.6. He is currently receiving IV antibiotics. PAST MEDICAL HISTORY: 1. COPD. 2. Chronic respiratory failure, utilizing oxygen supplementation at bedtime. 3. Coronary artery disease with previous coronary artery bypass grafting. 4. Tobacco dependent. ALLERGIES: No known drug allergies. FAMILY HISTORY: Diabetes. SOCIAL HISTORY: He continues to smoke. REVIEW OF SYSTEMS: CONSTITUTIONAL: No subjective fever. EYES: No change in visual acuity. HENT: No nasal congestion, sore throat. PULMONARY: As indicated above. CARDIOVASCULAR: Some pleuritic type of chest discomfort. GASTROINTESTINAL: No nausea, vomiting, diarrhea. GENITOURINARY: No dysuria or frequency. MUSCULOSKELETAL: No localized muscle aches or joint pains. SKIN: No new skin rashes. NEUROLOGIC: No headaches, diplopia or blurred vision. MAR was reviewed. PHYSICAL EXAMINATION: VITAL SIGNS: T-max yesterday 100.6. He is currently on 2 liters of oxygen supplementation normally. Normally no oxygen is required during the day. HEENT: Eyes, the sclerae are nonicteric. NECK: Jugular venous distention was not elevated. No lymphadenopathy. CHEST: Full expansion. LUNGS: Rales on the right. No wheezes. CARDIOVASCULAR: Regular rate and rhythm with S1, S2, no S3. ABDOMEN: Soft, nontender. EXTREMITIES: No clubbing, cyanosis or edema. LABORATORY DATA: As indicated above. He had a leukopenia. Electrolytes were noted. Chest x-ray as indicated above. IMPRESSION: 1. Acute hypoxemic respiratory failure, multifactorial. 2. Acute exacerbation of chronic obstructive pulmonary disease. 3. Abnormal x-ray revealing right upper lobe infiltrates, suspect Gram negative, possibly Gram positive pneumonia. 4. COVID-19 vaccination up-to-date. 5. Negative SARS-CoV-2 testing. 6. Leukopenia. 7. Lactic acidosis secondary to increased work of breathing. 8. Bacteremia. PLAN: 1. Recommend continue empiric antibiotics. 2. Oxygen supplementation. 3. Blood culture so far 07/26 with gram-positive rods. Follow up on blood cultures. 4. Deep venous thrombosis prophylaxis. 5. Continue home meds. 6. Obtain CT chest. I do appreciate the privilege in sharing in the patient's care. CAROLA DR: Katalina TID: [id number]
[2021-03-25] MEDS: ATORVASTATIN CALCIUM 40 MG TABLET. PO SCH (21:45)
[2021-03-25] MEDS: TAMSULOSIN 0.4 MG CAP.ER.24H. PO SCH (21:45)
[2021-03-25 23:00] VITALS: BP 124/82
[2021-03-26] MEDS: IV NORMAL SALINE 1000ML BAG 1,000 ML IV SCH ×2 (00:46→14:36)
--- NOTE | 2021-03-26 01:16 | CONS ---
DATE OF CONSULTATION: 03/25/2021 REQUESTING PHYSICIAN: Nate Arevalo MD REASON FOR CONSULTATION: Pneumonia and sepsis. HISTORY OF PRESENT ILLNESS: This is a 75-year-old gentleman, who came in with cough and had some shortness of breath. The patient had been running fever. He came in with normal white count but then it dropped, now he has leukopenia. He was given azithromycin, on Rocephin. Blood culture is positive 1 out of 4, gram-positive cocci. The patient is forgetful and he has not been able to give much meaningful history for when was the last time antibiotic was taken or when was the last time he was in the hospital, etc. Simple questions, he is able to answer. The patient denies any headache or visual symptoms. Denies any chest pain. Denies any shortness of breath. Denies any abdominal pain, urinary symptoms or bowel symptoms. He did have lower abdominal pain, he says, but after having bowel movement, it went away and the only thing bothering him right now is the cough. PAST MEDICAL HISTORY: Positive for coronary artery disease with bypass surgery done in the past. The patient also has some sinus problem, gastroesophageal reflux disease, COPD, hypertension, hyperlipidemia, osteoporosis, PTSD, depression, skin cancer and memory deficit. SOCIAL HISTORY: Negative for alcohol use or drug use. He does smoke. ALLERGIES: No known drug allergies. CURRENT MEDICATIONS: Reviewed. REVIEW OF SYSTEMS: As in HPI. All other systems reviewed are negative. PHYSICAL EXAMINATION: GENERAL: Alert, oriented gentleman, not in distress. VITAL SIGNS: Temperature 98.4 with a T-max 100.1, pulse 110, respirations 18, blood pressure 109/66. He is on 2 liters oxygen. HEENT: NAD. NECK: Supple, no JVP, no lymphadenopathy. LUNGS: Clear. HEART: S1, S2 regular. ABDOMEN: Soft, nontender. No organomegaly. EXTREMITIES: No edema or cyanosis. SKIN: Unremarkable. NEUROLOGIC: The patient is alert, awake, and appropriate. No focal deficit. The patient does have memory deficit. LABORATORY DATA: White count is 2.6, hemoglobin 13.7, platelets are normal at 146,000. BUN and creatinine is 35 and 1.2. Lactic acid 2.5. He is COVID negative. Blood culture 1 of 4 bottles gram-positive sherif. IMAGING: Chest x-ray showed medial right upper lobe infiltrate. IMPRESSION: 1. Community acquired pneumonia. 2. Leukopenia. 3. Fever. 4. Coronary artery disease. 5. Blood culture, 1 out of 4 gram-positive sherif. It is a contaminant. 6. Chronic obstructive pulmonary disease. 7. Tobaccoism. 8. Dementia. RECOMMENDATIONS: Continue Rocephin, give azithromycin, supportive care and we will continue to follow. Thank you very much, Dr. Arevalo, for giving me opportunity to participate in this patient's care. HOWARD/CIRO/MONI DR: Marcelle TID: [id number]
[2021-03-26 03:00] VITALS: BP 97/49
[2021-03-26 07:00] VITALS: BP 105/61
[2021-03-26] MEDS: IPRATRPIUM/ALBUTEROL 0.5/2.5MG 3 ML NEBU. NEB SCH ×4 (07:38→20:47)
[2021-03-26] MEDS: BUDESONIDE 0.5 MG/2 ML NEBU. NEB SCH ×2 (07:39→20:48)
--- NOTE | 2021-03-26 07:41 | PDOC ---
PULMONARY PROGRESS NOTES DATE: 03/26/21 TIME: 07:41 Subjective Patient feels better, sitting up in the chair, no increasing shortness of breath Vitals Vital Signs Date Time Temp Pulse Resp B/P (MAP) Pulse Ox O2 Delivery O2 Flow Rate FiO2 03/26/21 05:31 95 Nasal Cannula 3.0 03/26/21 03:00 97.9 95 18 97/49 (65) 97.9 ROS: No Nausea, No Chest Pain, No Abdominal Pain, No Increase Cough General: Alert Lungs: Crackles Cardiovascular: S1, S2 Abdomen: Soft, Non-tender Neuro Exam: Alert Extremities: No Edema Skin: Warm Labs Laboratory Tests Test 03/24/21 13:12 03/24/21 15:35 03/24/21 16:00 03/24/21 16:05 White Blood Count 7.7 x10^3/uL (4.0-11.0) Red Blood Count 4.78 x10^6/uL (4.30-5.70) Hemoglobin 14.8 g/dL (13.0-17.5) Hematocrit 43.4 % (39.0-53.0) Mean Corpuscular Volume 91 fL (79-100) Mean Corpuscular Hemoglobin 31 pg (25-35) Mean Corpuscular Hemoglobin Concent 34 g/dL (31-37) Red Cell Distribution Width 14.5 % (11.5-14.5) Platelet Count 165 x10^3/uL (140-400) Neutrophils (%) (Auto) 85 % (31-73) Lymphocytes (%) (Auto) 9 % (24-48) Monocytes (%) (Auto) 6 % (0-9) Eosinophils (%) (Auto) 1 % (0-3) Basophils (%) (Auto) 1 % (0-3) Neutrophils # (Auto) 6.5 x10^3/uL (1.8-7.7) Lymphocytes # (Auto) 0.7 x10^3/uL (1.0-4.8) Monocytes # (Auto) 0.4 x10^3/uL (0.0-1.1) Eosinophils # (Auto) 0.0 x10^3/uL (0.0-0.7) Basophils # (Auto) 0.1 x10^3/uL (0.0-0.2) D-Dimer (Missy) 0.43 ug/mlFEU (0.00-0.50) Sodium Level 140 mmol/L (136-145) Potassium Level 4.1 mmol/L (3.5-5.1) Chloride Level 104 mmol/L (98-107) Carbon Dioxide Level 28 mmol/L (21-32) Anion Gap 8 (6-14) Blood Urea Nitrogen 23 mg/dL (8-26) Creatinine 0.9 mg/dL (0.7-1.3) Estimated GFR (Cockcroft-Gault) 81.8 Glucose Level 104 mg/dL (70-99) Calcium Level 8.8 mg/dL (8.5-10.1) Troponin I Quantitative < 0.017 ng/mL (0.000-0.055) < 0.017 ng/mL (0.000-0.055) XK-Bgc-M-Type Natriuretic Peptide 545 pg/mL (0-449) SARS-CoV-2 RNA (EDMOND) Negative (Negative) SARS-CoV-2 Antigen (Rapid) Negative (NEGATIVE) Test 03/24/21 17:00 03/24/21 20:50 03/25/21 05:30 Lactic Acid Level 2.1 mmol/L (0.4-2.0) 2.5 mmol/L (0.4-2.0) Troponin I Quantitative < 0.017 ng/mL (0.000-0.055) White Blood Count 2.6 x10^3/uL (4.0-11.0) Red Blood Count 4.40 x10^6/uL (4.30-5.70) Hemoglobin 13.7 g/dL (13.0-17.5) Hematocrit 40.1 % (39.0-53.0) Mean Corpuscular Volume 91 fL (79-100) Mean Corpuscular Hemoglobin 31 pg (25-35) Mean Corpuscular Hemoglobin Concent 34 g/dL (31-37) Red Cell Distribution Width 15.1 % (11.5-14.5) Platelet Count 146 x10^3/uL (140-400) Neutrophils (%) (Auto) 72 % (31-73) Lymphocytes (%) (Auto) 21 % (24-48) Monocytes (%) (Auto) 6 % (0-9) Eosinophils (%) (Auto) 0 % (0-3) Basophils (%) (Auto) 0 % (0-3) Neutrophils # (Auto) 1.9 x10^3/uL (1.8-7.7) Lymphocytes # (Auto) 0.6 x10^3/uL (1.0-4.8) Monocytes # (Auto) 0.2 x10^3/uL (0.0-1.1) Eosinophils # (Auto) 0.0 x10^3/uL (0.0-0.7) Basophils # (Auto) 0.0 x10^3/uL (0.0-0.2) Sodium Level 139 mmol/L (136-145) Potassium Level 4.2 mmol/L (3.5-5.1) Chloride Level 104 mmol/L (98-107) Carbon Dioxide Level 26 mmol/L (21-32) Anion Gap 9 (6-14) Blood Urea Nitrogen 35 mg/dL (8-26) Creatinine 1.2 mg/dL (0.7-1.3) Estimated GFR (Cockcroft-Gault) 58.7 Glucose Level 81 mg/dL (70-99) Calcium Level 8.3 mg/dL (8.5-10.1) Medications Active Scripts Medications Dose Route/Sig Max Daily Dose Days Date Category Dose Instructions NITROGLYCERIN SubLingual (Nitroglycerin) 0.4 Mg Tab.subl 1 Tab SL UD PRN 03/24/21 Reported 1st sign of attack; may repeat every 5 mins; if pain persists after 3 in 15 min, medical attention is recommended Albuterol Sulfate Neb Soln (Albuterol Sulfate) 1.25 Mg/3 Ml Vial.neb 1 Vial NEB BID 03/24/21 Reported Flonase Allergy Relief (Fluticasone Propionate) 9.9 Ml [place].susp 2 Sprays NS DAILY 03/24/21 Reported Wixela 500-50 Inhub (Fluticasone Propion/Salmeterol) 1 Each Blst.w.dev 1 Each IH BID 03/24/21 Reported Spiriva (Tiotropium [place]) 18 Mcg Cap.w.dev 1 Cap IH DAILY 03/24/21 Reported Alendronate Sodium 70 Mg Tablet 1 Tab PO WEEKLY 03/24/21 Reported Prilosec Otc (Omeprazole Magnesium) 20 Mg Tablet.dr 1 Tab PO DAILY 30 03/24/21 Reported Vitamin D3 (Vitamin D) 25 Mcg Tablet 50 Mcg PO DAILY 03/24/21 Reported 1,000 UNITS = 25 MCG Rosuvastatin Calcium 20 Mg Tablet 20 Mg PO HS 03/24/21 Reported Meloxicam 15 Mg Tablet 1 Tab PO DAILY 30 03/24/21 Reported Metoprolol Tartrate 50 Mg Tablet 1 Tab PO BID 03/24/21 Reported Aspirin 81 Mg Tab.chew 1 Tab PO DAILY 03/24/21 Reported Salagen (Pilocarpine Hcl) 5 Mg Tablet 1 Tab PO TID 30 03/24/21 Reported Bupropion Xl (Bupropion Hcl) 150 Mg Tab.er.24h 1 Tab PO BID 03/24/21 Reported Flomax (Tamsulosin Hcl) 0.4 Mg Cap.er.24h 1 Cap PO HS 03/24/21 Reported Impression . IMPRESSION: 1. Acute hypoxemic respiratory failure, multifactorial. 2. Acute exacerbation of chronic obstructive pulmonary disease. 3. Abnormal x-ray revealing right upper lobe infiltrates, suspect Gram negative, possibly Gram positive pneumonia. 4. COVID-19 vaccination up-to-date. 5. Negative SARS-CoV-2 testing. 6. Leukopenia. 7. Lactic acidosis secondary to increased work of breathing. 8. Bacteremia., Per ID, probable contaminant CT chest report IMPRESSION: 1. Multiple interstitial and airspace opacities identified in the right upper lobe and right lower lobe of the lung likely pneumonia or infiltrates. Follow-up to resolution. 2. Moderate bilateral lung emphysema. Plan . Updated 03/26 continue current antibiotics per ID Oxygen supplementation DVT prophylaxis CT chest reviewed, repeat CT in 2 to month PLAN: 1. Recommend continue empiric antibiotics. 2. Oxygen supplementation. 3. Blood culture so far 07/26 with gram-positive rods. Follow up on blood cultures. 4. Deep venous thrombosis prophylaxis. 5. Continue home meds. 6. Obtain CT chest. I do appreciate the privilege in sharing in the patient's care. CHARLES SMITH MD Mar 26, 2021 07:41
[2021-03-26] MEDS: PANTOPRAZOLE 40 MG TABLET.DR. PO SCH (09:02)
[2021-03-26] MEDS: CHOLECALCIFEROL (VITAMIN D3) 1,000 UNIT TABLET PO SCH (09:02)
[2021-03-26] MEDS: LACTOBACILLUS RHAMNOSUS GG 1 CAPSULE. PO SCH ×2 (09:02→20:41)
[2021-03-26] MEDS: MELOXICAM 7.5 MG TABLET PO SCH (09:02)
[2021-03-26] MEDS: ASPIRIN CHEWABLE 81 MG TABLET. PO SCH (09:02)
[2021-03-26] MEDS: AZITHROMYCIN 250 MG TABLET. PO SCH (09:02)
[2021-03-26] MEDS: buPROPion XL 150 MG TAB.ER.24H. PO SCH ×2 (09:02→20:41)
[2021-03-26] MEDS: PILOCARPINE 5 MG TABLET. PO SCH ×3 (09:02→20:41)
[2021-03-26] MEDS: METOPROLOL TART IMMED RELEASE 50 MG TABLET. PO SCH ×2 (09:03→20:42)
[2021-03-26] MEDS: FLUTICASONE 50MCG/NASAL SPRAY 16GM BOTTLE. NS SCH (09:06)
[2021-03-26 11:00] VITALS: BP 97/59
[2021-03-26] MEDS ORDERED: ALBUTEROL SULFATE 2.5 MG/3 ML NEBU. NEB PRN (11:00)
[2021-03-26] MEDS ORDERED: ALBUTEROL INH PRN ×2 (11:30)
--- NOTE | 2021-03-26 12:16 | PDOC ---
PROGRESS NOTES Date of Service: DATE: 03/26/21 TIME: 12:16 Chief Complaint Chief Complaint ASSESSMENT AND PLAN: Pneumonia. SEPSIS Acute hypoxic resp failure Underweight Moderate bilateral lung emphysema Blood culture, 1 out of 4 gram-positive sherif. //contaminant. Chronic obstructive pulmonary disease PLAN admitted. IV antibiotics, breathing treatments, oxygen support, home meds, deep venous thrombosis prophylaxis. Full code. Long-term prognosis is guarded. consult Pulmonary Medicine Continue Rocephin, azithromycin, IV d/w RN History of Present Illness History of Present Illness CHIEF COMPLAINT: Shortness of breath and cough. HISTORY OF PRESENT ILLNESS: 75-year-old male who presented to the ER with shortness of breath and cough. It has been occurring since 7:00 9-2 He increased his home meds, but has not working. The pain makes it worse. He does have associated chest pain, rated at 6/10. The patient does have a history of bypass surgery. We did imaging that showing he has pneumonia in the right middle lobe. His COVID test is negative. I discussed the case with increment manager the patient, give him IV antibiotics and breathing treatments, oxygen. 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 ALLERGIES: None. FAMILY HISTORY: Diabetes. SOCIAL HISTORY: He smokes. No drink or drugs. MEDICATIONS: Reviewed, please refer to the MRAD. REVIEW OF SYSTEMS: Unable to obtain. Vitals Vitals Vital Signs Date Time Temp Pulse Resp B/P (MAP) Pulse Ox O2 Delivery O2 Flow Rate FiO2 03/26/21 11:36 95 Nasal Cannula 3.0 03/26/21 09:03 102 118/63 03/26/21 07:00 98.3 20 98.3 Physical Exam Physical Exam GENERAL: He is sedated. HEENT: Normal cephalic atraumatic, external auditory canals are patent EYES: Extraocular muscles are intact, pupils are equally round and reactive to light and accommodation MUSCULOSKELETAL: Well developed, well nourished, good range of motion ENDOCRINE: No thyromegaly was palpated LYMPHATICS: No cervical chain or axillary nodes were noted HEMATOPOIETIC: No bruising NECK: Supple, no JVD, no thyromegaly was noted. LUNGS: He has decreased breath sounds with some crackles on the right. HEART: RRR, S1, S2 present. Peripheral pulses intact, no obvious murmurs were noted. ABDOMEN: Soft, nontender. Positive bowel sounds no organomegaly, normal bowel sounds. EXTREMITIES: Without any cyanosis, clubbing, or edema. Pedal pulses intact, Homans sign is negative. NEUROLOGIC: He is sedated. PSYCHIATRIC: He is sedated. SKIN: No ulcerations or rashes, good skin turgor, no jaundice. VASCULAR: Good capillary refill, neurovascular bundle appears to be intact. General: Alert, Oriented X3, Cooperative, No acute distress Lungs: Crackles Abdomen: Normal bowel sounds, No tenderness Extremities: No clubbing, No cyanosis, No edema Labs LABS PATIENT: CHA DODGE ACCOUNT: [id number] : 1945 LOCATION: [address] [place] [address] AGE: 75 SEX: M EXAM STATUS: ADM IN ORD. PHYSICIAN: CHARLES SMIHT MD REASON: INFILTRATE PROCEDURE: CT CHEST W/CONTRAST Examination: CT chest with IV contrast HISTORY: History of infiltrates COMPARISON: None available Technique: Axial CT images of chest were performed with contrast. Coronal and sagittal reformats are performed. Exposure: One or more of the following individualized dose reduction techniques were utilized for this examination: 1. Automated exposure control 2. Adjustment of the mA and/or kV according to patient size 3. Use of iterative reconstruction technique FINDINGS: The heart size grossly appears unremarkable. Moderate aortic atherosclerosis. Coronary artery calcifications. Moderate bilateral lung emphysematous changes. There are multiple interstitial and airspace opacities identified in the right upper lobe and right lower lobe of the lung. The liver, spleen, adrenals grossly appears unremarkable. The stomach is mildly distended. Mild degenerative changes thoracic spine. IMPRESSION: 1. Multiple interstitial and airspace opacities identified in the right upper lobe and right lower lobe of the lung likely pneumonia or infiltrates. Follow-up to resolution. 2. Moderate bilateral lung emphysema. Electronically signed by: Eduin Montilla MD (03/25/2021 3:10 PM) [id number] DICTATED and SIGNED BY: EDUIN MONTILLA MD DATE: 03/25/21 [id number] PATIENT: CHA DODGE ACCOUNT: [id number] : 1945 LOCATION: [address] [place] [address] AGE: 75 SEX: M EXAM STATUS: ADM IN ORD. PHYSICIAN: CHARLES SMITH MD REASON: INFILTRATE PROCEDURE: CT CHEST W/CONTRAST Examination: CT chest with IV contrast HISTORY: History of infiltrates COMPARISON: None available Technique: Axial CT images of chest were performed with contrast. Coronal and sagittal reformats are performed. Exposure: One or more of the following individualized dose reduction techniques were utilized for this examination: 1. Automated exposure control 2. Adjustment of the mA and/or kV according to patient size 3. Use of iterative reconstruction technique FINDINGS: The heart size grossly appears unremarkable. Moderate aortic atherosclerosis. Coronary artery calcifications. Moderate bilateral lung emphysematous changes. There are multiple interstitial and airspace opacities identified in the right upper lobe and right lower lobe of the lung. The liver, spleen, adrenals grossly appears unremarkable. The stomach is mildly distended. Mild degenerative changes thoracic spine. IMPRESSION: 1. Multiple interstitial and airspace opacities identified in the right upper lobe and right lower lobe of the lung likely pneumonia or infiltrates. Follow-up to resolution. 2. Moderate bilateral lung emphysema. Electronically signed by: Eduin Montilla MD (03/25/2021 3:10 PM) [id number] DICTATED and SIGNED BY: EDUIN MONTILLA MD DATE: 03/25/21 [id number] Assessment and Plan Assessmemt and Plan Problems Medical Problems: (1) Community acquired pneumonia Status: Acute Comment Review of Relevant I have reviewed the following items adriane (where applicable) has been applied. Labs Laboratory Tests Test 03/24/21 13:12 03/24/21 15:35 03/24/21 16:00 03/24/21 16:05 White Blood Count 7.7 x10^3/uL (4.0-11.0) Red Blood Count 4.78 x10^6/uL (4.30-5.70) Hemoglobin 14.8 g/dL (13.0-17.5) Hematocrit 43.4 % (39.0-53.0) Mean Corpuscular Volume 91 fL (79-100) Mean Corpuscular Hemoglobin 31 pg (25-35) Mean Corpuscular Hemoglobin Concent 34 g/dL (31-37) Red Cell Distribution Width 14.5 % (11.5-14.5) Platelet Count 165 x10^3/uL (140-400) Neutrophils (%) (Auto) 85 % (31-73) Lymphocytes (%) (Auto) 9 % (24-48) Monocytes (%) (Auto) 6 % (0-9) Eosinophils (%) (Auto) 1 % (0-3) Basophils (%) (Auto) 1 % (0-3) Neutrophils # (Auto) 6.5 x10^3/uL (1.8-7.7) Lymphocytes # (Auto) 0.7 x10^3/uL (1.0-4.8) Monocytes # (Auto) 0.4 x10^3/uL (0.0-1.1) Eosinophils # (Auto) 0.0 x10^3/uL (0.0-0.7) Basophils # (Auto) 0.1 x10^3/uL (0.0-0.2) D-Dimer (Missy) 0.43 ug/mlFEU (0.00-0.50) Sodium Level 140 mmol/L (136-145) Potassium Level 4.1 mmol/L (3.5-5.1) Chloride Level 104 mmol/L (98-107) Carbon Dioxide Level 28 mmol/L (21-32) Anion Gap 8 (6-14) Blood Urea Nitrogen 23 mg/dL (8-26) Creatinine 0.9 mg/dL (0.7-1.3) Estimated GFR (Cockcroft-Gault) 81.8 Glucose Level 104 mg/dL (70-99) Calcium Level 8.8 mg/dL (8.5-10.1) Troponin I Quantitative < 0.017 ng/mL (0.000-0.055) < 0.017 ng/mL (0.000-0.055) HB-Tlu-Z-Type Natriuretic Peptide 545 pg/mL (0-449) SARS-CoV-2 RNA (EDMOND) Negative (Negative) SARS-CoV-2 Antigen (Rapid) Negative (NEGATIVE) Test 03/24/21 17:00 03/24/21 20:50 03/25/21 05:30 Lactic Acid Level 2.1 mmol/L (0.4-2.0) 2.5 mmol/L (0.4-2.0) Troponin I Quantitative < 0.017 ng/mL (0.000-0.055) White Blood Count 2.6 x10^3/uL (4.0-11.0) Red Blood Count 4.40 x10^6/uL (4.30-5.70) Hemoglobin 13.7 g/dL (13.0-17.5) Hematocrit 40.1 % (39.0-53.0) Mean Corpuscular Volume 91 fL (79-100) Mean Corpuscular Hemoglobin 31 pg (25-35) Mean Corpuscular Hemoglobin Concent 34 g/dL (31-37) Red Cell Distribution Width 15.1 % (11.5-14.5) Platelet Count 146 x10^3/uL (140-400) Neutrophils (%) (Auto) 72 % (31-73) Lymphocytes (%) (Auto) 21 % (24-48) Monocytes (%) (Auto) 6 % (0-9) Eosinophils (%) (Auto) 0 % (0-3) Basophils (%) (Auto) 0 % (0-3) Neutrophils # (Auto) 1.9 x10^3/uL (1.8-7.7) Lymphocytes # (Auto) 0.6 x10^3/uL (1.0-4.8) Monocytes # (Auto) 0.2 x10^3/uL (0.0-1.1) Eosinophils # (Auto) 0.0 x10^3/uL (0.0-0.7) Basophils # (Auto) 0.0 x10^3/uL (0.0-0.2) Sodium Level 139 mmol/L (136-145) Potassium Level 4.2 mmol/L (3.5-5.1) Chloride Level 104 mmol/L (98-107) Carbon Dioxide Level 26 mmol/L (21-32) Anion Gap 9 (6-14) Blood Urea Nitrogen 35 mg/dL (8-26) Creatinine 1.2 mg/dL (0.7-1.3) Estimated GFR (Cockcroft-Gault) 58.7 Glucose Level 81 mg/dL (70-99) Calcium Level 8.3 mg/dL (8.5-10.1) Microbiology 03/24/21 Blood Culture - Final, Complete Medications Current Medications Ringer's Solution 500 ml @ 500 mls/hr 1X ONCE IV Last administered on 03/24/21at 12:45; Start 03/24/21 at 12:45; Stop 03/24/21 at 13:44; Status DC Ringer's Solution 500 ml @ 500 mls/hr 1X ONCE IV Last administered on 03/24/21at 14:00; Start 03/24/21 at 14:00; Stop 03/24/21 at 14:59; Status DC Fentanyl Citrate (Fentanyl 2ml Vial) 75 mcg 1X ONCE IVP Last administered on 03/24/21at 15:30; Start 03/24/21 at 15:30; Stop 03/24/21 at 15:31; Status DC Fentanyl Citrate (Fentanyl 2ml Vial) 100 mcg STK-MED ONCE .ROUTE ; Start 03/24/21 at 15:29; Stop 03/24/21 at 15:29; Status DC Ceftriaxone Sodium (Rocephin) 2 gm 1X ONCE IVP Last administered on 03/24/21at 16:30; Start 03/24/21 at 16:30; Stop 03/24/21 at 16:31; Status DC Azithromycin 250 ml @ 250 mls/hr 1X ONCE IV Last administered on 03/24/21at 16:30; Start 03/24/21 at 16:30; Stop 03/24/21 at 17:29; Status DC Ringer's Solution 500 ml @ 500 mls/hr 1X ONCE IV Last administered on 03/24/21at 16:30; Start 03/24/21 at 16:30; Stop 03/24/21 at 17:29; Status DC Ondansetron HCl (Zofran) 4 mg PRN Q8HRS PRN IVP NAUSEA/VOMITING; Start 03/24/21 at 16:30; Stop 03/25/21 at 16:29; Status DC Fentanyl Citrate (Fentanyl 2ml Vial) 50 mcg PRN Q2HR PRN IVP PAIN Last administered on 03/25/21at 08:36; Start 03/24/21 at 16:30; Stop 03/25/21 at 16:29; Status DC Acetaminophen (Tylenol) 650 mg PRN Q4HRS PRN PO FEVER > 100.3'F; Start 03/24/21 at 16:30; Stop 03/24/21 at 16:27; Status DC Acetaminophen (Tylenol) 1,000 mg 1X ONCE PO Last administered on 03/24/21 16:30; Start 03/24/21 at 16:30; Stop 03/24/21 at 16:31; Status DC Ceftriaxone Sodium (Rocephin) 1 gm Q24H IVP Last administered on 03/25/21 17:37; Start 03/25/21 at 17:00 Albuterol/ Ipratropium (Duoneb) 3 ml RTQID NEB Last administered on 03/26/21 11:35; Start 03/24/21 at 20:00 Acetaminophen (Tylenol) 650 mg PRN Q6HRS PRN PO MILD PAIN / TEMP > 100.3'F Last administered on 03/25/21 21:45; Start 03/24/21 at 23:45 Aspirin (Aspirin Chewable) 81 mg DAILY PO Last administered on 03/26/21 09:02; Start 03/25/21 at 09:00 Bupropion HCl (Wellbutrin Xl) 150 mg BID PO Last administered on 03/26/21 09:02; Start 03/25/21 at 09:00 Vitamin D (Vitamin D3) 2,000 unit DAILY PO Last administered on 03/26/21 09:02; Start 03/25/21 at 09:00 Metoprolol Tartrate (Lopressor) 50 mg BID PO Last administered on 03/26/21 09:03; Start 03/25/21 at 09:00 Tamsulosin HCl (Flomax) 0.4 mg HS PO Last administered on 03/25/21 21:45; Start 03/25/21 at 21:00 Non-Formulary Medication (Albuterol Sulfate (Albuterol Sulfate Neb Soln)) 1 vial BID NEB ; Start 03/25/21 at 09:00; Stop 03/25/21 at 00:23; Status DC Non-Formulary Medication (Alendronate Sodium ) 1 tab WEEKLY PO ; Start 03/31/21 at 09:00; Status UNV Budesonide (Pulmicort) 0.5 mg RTBID NEB Last administered on 03/25/21at 20:14; Start 03/25/21 at 08:00 Fluticasone Propionate (Flonase) 2 spray DAILY NS Last administered on 9/4/21at 09:06; Start 03/25/21 at 09:00 Meloxicam (Mobic) 15 mg DAILY PO Last administered on 03/26/21at 09:02; Start 03/25/21 at 09:00 Pantoprazole Sodium (Protonix) 40 mg DAILYAC PO Last administered on 03/26/21at 09:02; Start 03/25/21 at 07:30 Atorvastatin Calcium (Lipitor) 80 mg QHS PO Last administered on 03/25/21at 21:45; Start 03/25/21 at 21:00 Non-Formulary Medication (Tiotropium [place] (Spiriva)) 1 cap DAILY IH ; Start 03/25/21 at 09:00; Status UNV [place] HCl (Salagen) 5 mg TID PO Last administered on 03/26/21at 09:02; Start 03/25/21 at 09:00 Azithromycin (Zithromax) 250 mg DAILY PO Last administered on 03/26/21at 09:02; Start 03/25/21 at 11:00 Sodium Chloride 1,000 ml @ 85 mls/hr [id number] IV Last administered on 03/26/21at 00:46; Start 03/25/21 at 13:00 Lactobacillus Rhamnosus (Culturelle) 1 cap BID PO Last administered on 03/26/21at 09:02; Start 03/25/21 at 13:00 Iohexol (Omnipaque 300 Mg/ml) 60 ml 1X ONCE IV ; Start 03/25/21 at 13:00; Stop 03/25/21 at 13:01; Status DC Info (CONTRAST GIVEN -- Rx MONITORING) 1 each PRN DAILY PRN MC SEE COMMENTS; Start 03/25/21 at 13:00; Stop 03/27/21 at 12:59 Albuterol Sulfate (Ventolin Neb Soln) 2.5 mg PRN Q1HR PRN NEB SHORTNESS OF THOM TH; Start 03/26/21 at 11:00 Non-Formulary Medication (Albuterol (Proair Hfa) Inhaler) 1 ea PRN Q1HR PRN INH SHORTNESS OF BREATH; Start 03/26/21 at 11:30; Stop 03/26/21 at 11:18; Status DC Non-Formulary Medication (Albuterol (Proair Hfa) Inhaler) 1 ea PRN Q1HR PRN INH SHORTNESS OF BREATH; Start 03/26/21 at 11:30 Active Scripts Active Reported NITROGLYCERIN SubLingual (Nitroglycerin) 0.4 Mg Tab.subl 1 Tab SL UD PRN 1st sign of attack; may repeat every 5 mins; if pain persists after 3 in 15 min, medical attention is recommended Albuterol Sulfate Neb Soln (Albuterol Sulfate) 1.25 Mg/3 Ml Vial.neb 1 Vial NEB BID Flonase Allergy Relief (Fluticasone Propionate) 9.9 Ml [place].susp 2 Sprays NS DAILY Wixela 500-50 Inhub (Fluticasone Propion/Salmeterol) 1 Each Blst.w.dev 1 Each IH BID Spiriva (Tiotropium [place]) 18 Mcg Cap.w.dev 1 Cap IH DAILY Alendronate Sodium 70 Mg Tablet 1 Tab PO WEEKLY Prilosec Otc (Omeprazole Magnesium) 20 Mg Tablet.dr 1 Tab PO DAILY 30 Days Vitamin D3 (Vitamin D) 25 Mcg Tablet 50 Mcg PO DAILY 1,000 UNITS = 25 MCG Rosuvastatin Calcium 20 Mg Tablet 20 Mg PO HS Meloxicam 15 Mg Tablet 1 Tab PO DAILY 30 Days Metoprolol Tartrate 50 Mg Tablet 1 Tab PO BID Aspirin 81 Mg Tab.chew 1 Tab PO DAILY Salagen (Pilocarpine Hcl) 5 Mg Tablet 1 Tab PO TID 30 Days Bupropion Xl (Bupropion Hcl) 150 Mg Tab.er.24h 1 Tab PO BID Flomax (Tamsulosin Hcl) 0.4 Mg Cap.er.24h 1 Cap PO HS Vitals/I & O Vital Sign - Last 24 Hours 03/25/21 03/25/21 03/25/21 03/25/21 13:19 13:20 15:00 15:44 Temp 98.1 98.1 Pulse 113 94 Resp 18 B/P (MAP) 97/50 (66) Pulse Ox 91 91 93 O2 Delivery Room Air Nasal Cannula O2 Flow Rate 3.0 2.0 3.0 03/25/21 03/25/21 03/25/21 03/25/21 19:00 20:15 20:15 21:46 Temp 98.4 98.4 Pulse 119 94 Resp 20 B/P (MAP) 124/65 (84) 97/50 Pulse Ox 92 95 O2 Delivery Nasal Cannula Room Air O2 Flow Rate 3.0 03/25/21 03/26/21 03/26/21 03/26/21 23:00 03:00 05:31 07:00 Temp 98.0 97.9 98.3 98.0 97.9 98.3 Pulse 70 95 104 Resp 22 18 20 B/P (MAP) 124/82 (96) 97/49 (65) 105/61 (76) Pulse Ox 96 94 95 92 O2 Delivery Nasal Cannula Nasal Cannula O2 Flow Rate 3.0 2.0 03/26/21 03/26/21 09:03 11:36 Pulse 102 B/P (MAP) 118/63 Pulse Ox 95 O2 Delivery Nasal Cannula O2 Flow Rate 3.0 Intake and Output 03/25/21 03/25/21 03/26/21 15:00 23:00 07:00 Intake Total 460 ml 400 ml 600 ml Balance 460 ml 400 ml 600 ml Justicifation of Admission Dx: Justifications for Admission: Justification of Admission Dx: Yes Sepsis: Bacteremia CHANDA PAUL MD Mar 26, 2021 12:16
--- NOTE | 2021-03-26 13:05 | PDOC ---
Infectious Disease Note Subjective Subjective Pt is resting quietly fever pattern improving ROS ROS no n/v//d/sob Vital Sign Vital Signs Vital Signs Date Time Temp Pulse Resp B/P (MAP) Pulse Ox O2 Delivery O2 Flow Rate FiO2 03/26/21 11:36 95 Nasal Cannula 3.0 03/26/21 09:03 102 118/63 03/26/21 07:00 98.3 20 98.3 Physical Exam PHYSICAL EXAM GEN alert awake HEENT: NAD. NECK: Supple, no JVP, no lymphadenopathy. LUNGS: Clear. HEART: S1, S2 regular. ABDOMEN: Soft, nontender. No organomegaly. EXTREMITIES: No edema or cyanosis. SKIN: Unremarkable. NEUROLOGIC: The patient is alert, awake, and appropriate. No focal deficit. The patient does have memory deficit. Labs Micro Microbiology 03/24/21 Blood Culture - Final, Complete Objective Assessment 1. Community acquired pneumonia. 2. Leukopenia.COVID negative 3. Fever. 4. Coronary artery disease. 5. Blood culture, 1 out of 4 gram-positive sherif. It is a contaminant. 6. Chronic obstructive pulmonary disease. 7. Tobaccoism. 8. Dementia. Plan Plan of Care Continue Rocephin, azithromycin, supportive care trend wbc f/u cults KIKI DAMICO MD Mar 26, 2021 13:05
[2021-03-26 15:00] VITALS: BP 115/48
[2021-03-26] MEDS: cefTRIAXone IV Push 1 GM VIAL. IVP SCH (17:58)
[2021-03-26] MEDS: NYSTATIN 100,000 UNITS/ML 5 ML ORAL.SUSP. SWSW SCH ×2 (18:30→20:41)
[2021-03-26 19:49] VITALS: BP 116/71
[2021-03-26] MEDS: TAMSULOSIN 0.4 MG CAP.ER.24H. PO SCH (20:42)
[2021-03-26] MEDS: ATORVASTATIN CALCIUM 40 MG TABLET. PO SCH (20:42)
[2021-03-26 22:55] VITALS: BP 138/79
[2021-03-27] MEDS: IV NORMAL SALINE 1000ML BAG 1,000 ML IV SCH ×2 (00:41→11:46)
[2021-03-27] MEDS: ACETAMINOPHEN 325 MG TABLET. PO PRN (01:09)
[2021-03-27 03:35] VITALS: BP 123/76
[2021-03-27] MEDS: IPRATRPIUM/ALBUTEROL 0.5/2.5MG 3 ML NEBU. NEB SCH ×2 (05:38→12:08)
[2021-03-27] MEDS: BUDESONIDE 0.5 MG/2 ML NEBU. NEB SCH (05:38)
[2021-03-27 06:38] LABS: BASO % 0 % (0-3); EOS # 0.4 x10^3/uL (0.0-0.7); EOS % 4 % (0-3); HEMATOCRIT 31.5 % (39.0-53.0); HEMOGLOBIN 10.8 g/dL (13.0-17.5); LYMPH # 0.6 x10^3/uL (1.0-4.8); LYMPH % 6 % (24-48); MEAN CORPUSCULAR HEMOGLOBIN 31 pg (25-35); MEAN CORPUSCULAR HGB CONC 34 g/dL (31-37); MEAN CORPUSCULAR VOLUME 91 fL (79-100); MONO # 0.4 x10^3/uL (0.0-1.1); MONO % 4 % (0-9); NEUT # 9.2 x10^3/uL (1.8-7.7); NEUT % 87 % (31-73); PLATELET COUNT 144 x10^3/uL (140-400); RED BLOOD COUNT 3.46 x10^6/uL (4.30-5.70); RED CELL DISTRIBUTION WIDTH 14.9 % (11.5-14.5); WHITE BLOOD COUNT 10.6 x10^3/uL (4.0-11.0)
[2021-03-27 07:00] VITALS: BP 145/72
[2021-03-27 07:09] LABS: ALBUMIN 2.2 g/dL (3.4-5.0); ALBUMIN/GLOBULIN RATIO 0.6 (1.0-1.7); CALCIUM 7.5 mg/dL (8.5-10.1); GFR 72.5; POTASSIUM 3.3 mmol/L (3.5-5.1); TOTAL BILIRUBIN 0.4 mg/dL (0.2-1.0); TOTAL PROTEIN 5.6 g/dL (6.4-8.2)
[2021-03-27] MEDS: FLUTICASONE 50MCG/NASAL SPRAY 16GM BOTTLE. NS SCH (09:09)
[2021-03-27] MEDS: PANTOPRAZOLE 40 MG TABLET.DR. PO SCH (09:09)
[2021-03-27] MEDS: ASPIRIN CHEWABLE 81 MG TABLET. PO SCH (09:09)
[2021-03-27] MEDS: NYSTATIN 100,000 UNITS/ML 5 ML ORAL.SUSP. SWSW SCH ×2 (09:09→11:46)
[2021-03-27] MEDS: METOPROLOL TART IMMED RELEASE 50 MG TABLET. PO SCH (09:09)
[2021-03-27] MEDS: LACTOBACILLUS RHAMNOSUS GG 1 CAPSULE. PO SCH (09:09)
[2021-03-27] MEDS: PILOCARPINE 5 MG TABLET. PO SCH ×2 (09:09→14:24)
[2021-03-27] MEDS: MELOXICAM 7.5 MG TABLET PO SCH (09:10)
[2021-03-27] MEDS: buPROPion XL 150 MG TAB.ER.24H. PO SCH (09:10)
[2021-03-27] MEDS: CHOLECALCIFEROL (VITAMIN D3) 1,000 UNIT TABLET PO SCH (09:10)
[2021-03-27] MEDS: AZITHROMYCIN 250 MG TABLET. PO SCH (09:10)
--- NOTE | 2021-03-27 10:10 | PDOC ---
PULMONARY PROGRESS NOTES DATE: 03/27/21 TIME: 10:09 Subjective Patient sitting up, feels better, ready to discharge Vitals Vital Signs Date Time Temp Pulse Resp B/P (MAP) Pulse Ox O2 Delivery O2 Flow Rate FiO2 03/27/21 09:09 100 145/72 03/27/21 07:00 97.9 18 94 Nasal Cannula 3.0 97.9 ROS: No Nausea, No Chest Pain, No Abdominal Pain, No Increase Cough General: Alert Lungs: Crackles Cardiovascular: S1, S2 Abdomen: Soft, Non-tender Neuro Exam: Alert Extremities: No Edema Skin: Warm Labs Laboratory Tests Test 03/27/21 05:30 White Blood Count 10.6 x10^3/uL (4.0-11.0) Red Blood Count 3.46 x10^6/uL (4.30-5.70) Hemoglobin 10.8 g/dL (13.0-17.5) Hematocrit 31.5 % (39.0-53.0) Mean Corpuscular Volume 91 fL (79-100) Mean Corpuscular Hemoglobin 31 pg (25-35) Mean Corpuscular Hemoglobin Concent 34 g/dL (31-37) Red Cell Distribution Width 14.9 % (11.5-14.5) Platelet Count 144 x10^3/uL (140-400) Neutrophils (%) (Auto) 87 % (31-73) Lymphocytes (%) (Auto) 6 % (24-48) Monocytes (%) (Auto) 4 % (0-9) Eosinophils (%) (Auto) 4 % (0-3) Basophils (%) (Auto) 0 % (0-3) Neutrophils # (Auto) 9.2 x10^3/uL (1.8-7.7) Lymphocytes # (Auto) 0.6 x10^3/uL (1.0-4.8) Monocytes # (Auto) 0.4 x10^3/uL (0.0-1.1) Eosinophils # (Auto) 0.4 x10^3/uL (0.0-0.7) Basophils # (Auto) 0.0 x10^3/uL (0.0-0.2) Sodium Level 139 mmol/L (136-145) Potassium Level 3.3 mmol/L (3.5-5.1) Chloride Level 106 mmol/L (98-107) Carbon Dioxide Level 27 mmol/L (21-32) Anion Gap 6 (6-14) Blood Urea Nitrogen 20 mg/dL (8-26) Creatinine 1.0 mg/dL (0.7-1.3) Estimated GFR (Cockcroft-Gault) 72.5 BUN/Creatinine Ratio 20 (6-20) Glucose Level 128 mg/dL (70-99) Calcium Level 7.5 mg/dL (8.5-10.1) Total Bilirubin 0.4 mg/dL (0.2-1.0) Aspartate Amino Transf (AST/SGOT) 56 U/L (15-37) Alanine Aminotransferase (ALT/SGPT) 62 U/L (16-63) Alkaline Phosphatase 77 U/L (46-116) Total Protein 5.6 g/dL (6.4-8.2) Albumin 2.2 g/dL (3.4-5.0) Albumin/Globulin Ratio 0.6 (1.0-1.7) Laboratory Tests Test 03/27/21 05:30 White Blood Count 10.6 x10^3/uL (4.0-11.0) Red Blood Count 3.46 x10^6/uL (4.30-5.70) Hemoglobin 10.8 g/dL (13.0-17.5) Hematocrit 31.5 % (39.0-53.0) Mean Corpuscular Volume 91 fL (79-100) Mean Corpuscular Hemoglobin 31 pg (25-35) Mean Corpuscular Hemoglobin Concent 34 g/dL (31-37) Red Cell Distribution Width 14.9 % (11.5-14.5) Platelet Count 144 x10^3/uL (140-400) Neutrophils (%) (Auto) 87 % (31-73) Lymphocytes (%) (Auto) 6 % (24-48) Monocytes (%) (Auto) 4 % (0-9) Eosinophils (%) (Auto) 4 % (0-3) Basophils (%) (Auto) 0 % (0-3) Neutrophils # (Auto) 9.2 x10^3/uL (1.8-7.7) Lymphocytes # (Auto) 0.6 x10^3/uL (1.0-4.8) Monocytes # (Auto) 0.4 x10^3/uL (0.0-1.1) Eosinophils # (Auto) 0.4 x10^3/uL (0.0-0.7) Basophils # (Auto) 0.0 x10^3/uL (0.0-0.2) Sodium Level 139 mmol/L (136-145) Potassium Level 3.3 mmol/L (3.5-5.1) Chloride Level 106 mmol/L (98-107) Carbon Dioxide Level 27 mmol/L (21-32) Anion Gap 6 (6-14) Blood Urea Nitrogen 20 mg/dL (8-26) Creatinine 1.0 mg/dL (0.7-1.3) Estimated GFR (Cockcroft-Gault) 72.5 BUN/Creatinine Ratio 20 (6-20) Glucose Level 128 mg/dL (70-99) Calcium Level 7.5 mg/dL (8.5-10.1) Total Bilirubin 0.4 mg/dL (0.2-1.0) Aspartate Amino Transf (AST/SGOT) 56 U/L (15-37) Alanine Aminotransferase (ALT/SGPT) 62 U/L (16-63) Alkaline Phosphatase 77 U/L (46-116) Total Protein 5.6 g/dL (6.4-8.2) Albumin 2.2 g/dL (3.4-5.0) Albumin/Globulin Ratio 0.6 (1.0-1.7) Medications Active Scripts Medications Dose Route/Sig Max Daily Dose Days Date Category Dose Instructions NITROGLYCERIN SubLingual (Nitroglycerin) 0.4 Mg Tab.subl 1 Tab SL UD PRN 03/24/21 Reported 1st sign of attack; may repeat every 5 mins; if pain persists after 3 in 15 min, medical attention is recommended Albuterol Sulfate Neb Soln (Albuterol Sulfate) 1.25 Mg/3 Ml Vial.neb 1 Vial NEB BID 03/24/21 Reported Flonase Allergy Relief (Fluticasone Propionate) 9.9 Ml [place].susp 2 Sprays NS DAILY 03/24/21 Reported Wixela 500-50 Inhub (Fluticasone Propion/Salmeterol) 1 Each Blst.w.dev 1 Each IH BID 03/24/21 Reported Spiriva (Tiotropium [place]) 18 Mcg Cap.w.dev 1 Cap IH DAILY 03/24/21 Reported Alendronate Sodium 70 Mg Tablet 1 Tab PO WEEKLY 03/24/21 Reported Prilosec Otc (Omeprazole Magnesium) 20 Mg Tablet. 1 Tab PO DAILY 30 03/24/21 Reported Vitamin D3 (Vitamin D) 25 Mcg Tablet 50 Mcg PO DAILY 03/24/21 Reported 1,000 UNITS = 25 MCG Rosuvastatin Calcium 20 Mg Tablet 20 Mg PO HS 03/24/21 Reported Meloxicam 15 Mg Tablet 1 Tab PO DAILY 30 03/24/21 Reported Metoprolol Tartrate 50 Mg Tablet 1 Tab PO BID 03/24/21 Reported Aspirin 81 Mg Tab.chew 1 Tab PO DAILY 03/24/21 Reported Salagen (Pilocarpine Hcl) 5 Mg Tablet 1 Tab PO TID 30 03/24/21 Reported Bupropion Xl (Bupropion Hcl) 150 Mg Tab.er.24h 1 Tab PO BID 03/24/21 Reported Flomax (Tamsulosin Hcl) 0.4 Mg Cap.er.24h 1 Cap PO HS 03/24/21 Reported Impression . IMPRESSION: 1. Acute hypoxemic respiratory failure, multifactorial. 2. Acute exacerbation of chronic obstructive pulmonary disease. 3. Abnormal x-ray revealing right upper lobe infiltrates, suspect Gram negative, possibly Gram positive pneumonia. 4. COVID-19 vaccination up-to-date. 5. Negative SARS-CoV-2 testing. 6. Leukopenia. 7. Lactic acidosis secondary to increased work of breathing. 8. Bacteremia., Per ID, probable contaminant CT chest report IMPRESSION: 1. Multiple interstitial and airspace opacities identified in the right upper lobe and right lower lobe of the lung likely pneumonia or infiltrates. Follow-up to resolution. 2. Moderate bilateral lung emphysema. Plan . Updated 03/27 CT chest reviewed, repeat CT in 2 months, patient to follow-up with me. Discharge home on antibiotics Discussed with infectious disease and Dr. Arevalo updated 03/26 continue current antibiotics per ID Oxygen supplementation DVT prophylaxis CT chest reviewed, repeat CT in 2 to month CHARLES SMITH MD Mar 27, 2021 10:10
[2021-03-27 11:00] VITALS: BP 145/72
--- NOTE | 2021-03-27 11:22 | PDOC ---
PROGRESS NOTES Date of Service: DATE: 03/27/21 TIME: 11:22 Chief Complaint Chief Complaint ASSESSMENT AND PLAN: Pneumonia. SEPSIS Acute hypoxic resp failure Underweight Moderate bilateral lung emphysema Blood culture, 1 out of 4 gram-positive sherif. //contaminant. Chronic obstructive pulmonary disease PLAN admitted. IV antibiotics, d/c home today po augmention, zithromax breathing treatments, oxygen support, home meds, deep venous thrombosis prophylaxis. Full code. Long-term prognosis is guarded. consult Pulmonary Medicine Continue Rocephin, azithromycin, IV d/w RN d/c planning 33 min History of Present Illness History of Present Illness CHIEF COMPLAINT: Shortness of breath and cough. HISTORY OF PRESENT ILLNESS: 75-year-old male who presented to the ER with shortness of breath and cough. It has been occurring since 7:00 9-2 He increased his home meds, but has not working. The pain makes it worse. He does have associated chest pain, rated at 6/10. The patient does have a history of bypass surgery. We did imaging that showing he has pneumonia in the right middle lobe. His COVID test is negative. I discussed the case with clinical administrative coordinator the patient, give him IV antibiotics and breathing treatments, oxygen. 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 ALLERGIES: None. FAMILY HISTORY: Diabetes. SOCIAL HISTORY: He smokes. No drink or drugs. MEDICATIONS: Reviewed, please refer to the MRAD. REVIEW OF SYSTEMS: Unable to obtain. Vitals Vitals Vital Signs Date Time Temp Pulse Resp B/P (MAP) Pulse Ox O2 Delivery O2 Flow Rate FiO2 03/27/21 09:09 100 145/72 03/27/21 08:00 Nasal Cannula 2.0 03/27/21 07:00 97.9 18 94 97.9 Physical Exam Physical Exam GEN alert awake HEENT: NAD. NECK: Supple, no JVP, no lymphadenopathy. LUNGS: Clear. HEART: S1, S2 regular. ABDOMEN: Soft, nontender. No organomegaly. EXTREMITIES: No edema or cyanosis. SKIN: Unremarkable. NEUROLOGIC: The patient is alert, awake, and appropriate. No focal deficit. The patient does have memory deficit. General: Alert, Oriented X3, Cooperative, No acute distress Heart: Regular rate Lungs: Crackles Abdomen: Normal bowel sounds, No tenderness Extremities: No clubbing, No cyanosis, No edema, No tenderness/swelling Skin: No significant lesion Labs LABS Laboratory Tests Test 03/27/21 05:30 White Blood Count 10.6 x10^3/uL (4.0-11.0) Red Blood Count 3.46 x10^6/uL (4.30-5.70) Hemoglobin 10.8 g/dL (13.0-17.5) Hematocrit 31.5 % (39.0-53.0) Mean Corpuscular Volume 91 fL (79-100) Mean Corpuscular Hemoglobin 31 pg (25-35) Mean Corpuscular Hemoglobin Concent 34 g/dL (31-37) Red Cell Distribution Width 14.9 % (11.5-14.5) Platelet Count 144 x10^3/uL (140-400) Neutrophils (%) (Auto) 87 % (31-73) Lymphocytes (%) (Auto) 6 % (24-48) Monocytes (%) (Auto) 4 % (0-9) Eosinophils (%) (Auto) 4 % (0-3) Basophils (%) (Auto) 0 % (0-3) Neutrophils # (Auto) 9.2 x10^3/uL (1.8-7.7) Lymphocytes # (Auto) 0.6 x10^3/uL (1.0-4.8) Monocytes # (Auto) 0.4 x10^3/uL (0.0-1.1) Eosinophils # (Auto) 0.4 x10^3/uL (0.0-0.7) Basophils # (Auto) 0.0 x10^3/uL (0.0-0.2) Sodium Level 139 mmol/L (136-145) Potassium Level 3.3 mmol/L (3.5-5.1) Chloride Level 106 mmol/L (98-107) Carbon Dioxide Level 27 mmol/L (21-32) Anion Gap 6 (6-14) Blood Urea Nitrogen 20 mg/dL (8-26) Creatinine 1.0 mg/dL (0.7-1.3) Estimated GFR (Cockcroft-Gault) 72.5 BUN/Creatinine Ratio 20 (6-20) Glucose Level 128 mg/dL (70-99) Calcium Level 7.5 mg/dL (8.5-10.1) Total Bilirubin 0.4 mg/dL (0.2-1.0) Aspartate Amino Transf (AST/SGOT) 56 U/L (15-37) Alanine Aminotransferase (ALT/SGPT) 62 U/L (16-63) Alkaline Phosphatase 77 U/L (46-116) Total Protein 5.6 g/dL (6.4-8.2) Albumin 2.2 g/dL (3.4-5.0) Albumin/Globulin Ratio 0.6 (1.0-1.7) Assessment and Plan Assessmemt and Plan Problems Medical Problems: (1) Community acquired pneumonia Status: Acute Comment Review of Relevant I have reviewed the following items adriane (where applicable) has been applied. Labs Laboratory Tests Test 03/27/21 05:30 White Blood Count 10.6 x10^3/uL (4.0-11.0) Red Blood Count 3.46 x10^6/uL (4.30-5.70) Hemoglobin 10.8 g/dL (13.0-17.5) Hematocrit 31.5 % (39.0-53.0) Mean Corpuscular Volume 91 fL (79-100) Mean Corpuscular Hemoglobin 31 pg (25-35) Mean Corpuscular Hemoglobin Concent 34 g/dL (31-37) Red Cell Distribution Width 14.9 % (11.5-14.5) Platelet Count 144 x10^3/uL (140-400) Neutrophils (%) (Auto) 87 % (31-73) Lymphocytes (%) (Auto) 6 % (24-48) Monocytes (%) (Auto) 4 % (0-9) Eosinophils (%) (Auto) 4 % (0-3) Basophils (%) (Auto) 0 % (0-3) Neutrophils # (Auto) 9.2 x10^3/uL (1.8-7.7) Lymphocytes # (Auto) 0.6 x10^3/uL (1.0-4.8) Monocytes # (Auto) 0.4 x10^3/uL (0.0-1.1) Eosinophils # (Auto) 0.4 x10^3/uL (0.0-0.7) Basophils # (Auto) 0.0 x10^3/uL (0.0-0.2) Sodium Level 139 mmol/L (136-145) Potassium Level 3.3 mmol/L (3.5-5.1) Chloride Level 106 mmol/L (98-107) Carbon Dioxide Level 27 mmol/L (21-32) Anion Gap 6 (6-14) Blood Urea Nitrogen 20 mg/dL (8-26) Creatinine 1.0 mg/dL (0.7-1.3) Estimated GFR (Cockcroft-Gault) 72.5 BUN/Creatinine Ratio 20 (6-20) Glucose Level 128 mg/dL (70-99) Calcium Level 7.5 mg/dL (8.5-10.1) Total Bilirubin 0.4 mg/dL (0.2-1.0) Aspartate Amino Transf (AST/SGOT) 56 U/L (15-37) Alanine Aminotransferase (ALT/SGPT) 62 U/L (16-63) Alkaline Phosphatase 77 U/L (46-116) Total Protein 5.6 g/dL (6.4-8.2) Albumin 2.2 g/dL (3.4-5.0) Albumin/Globulin Ratio 0.6 (1.0-1.7) Laboratory Tests Test 03/27/21 05:30 White Blood Count 10.6 x10^3/uL (4.0-11.0) Red Blood Count 3.46 x10^6/uL (4.30-5.70) Hemoglobin 10.8 g/dL (13.0-17.5) Hematocrit 31.5 % (39.0-53.0) Mean Corpuscular Volume 91 fL (79-100) Mean Corpuscular Hemoglobin 31 pg (25-35) Mean Corpuscular Hemoglobin Concent 34 g/dL (31-37) Red Cell Distribution Width 14.9 % (11.5-14.5) Platelet Count 144 x10^3/uL (140-400) Neutrophils (%) (Auto) 87 % (31-73) Lymphocytes (%) (Auto) 6 % (24-48) Monocytes (%) (Auto) 4 % (0-9) Eosinophils (%) (Auto) 4 % (0-3) Basophils (%) (Auto) 0 % (0-3) Neutrophils # (Auto) 9.2 x10^3/uL (1.8-7.7) Lymphocytes # (Auto) 0.6 x10^3/uL (1.0-4.8) Monocytes # (Auto) 0.4 x10^3/uL (0.0-1.1) Eosinophils # (Auto) 0.4 x10^3/uL (0.0-0.7) Basophils # (Auto) 0.0 x10^3/uL (0.0-0.2) Sodium Level 139 mmol/L (136-145) Potassium Level 3.3 mmol/L (3.5-5.1) Chloride Level 106 mmol/L (98-107) Carbon Dioxide Level 27 mmol/L (21-32) Anion Gap 6 (6-14) Blood Urea Nitrogen 20 mg/dL (8-26) Creatinine 1.0 mg/dL (0.7-1.3) Estimated GFR (Cockcroft-Gault) 72.5 BUN/Creatinine Ratio 20 (6-20) Glucose Level 128 mg/dL (70-99) Calcium Level 7.5 mg/dL (8.5-10.1) Total Bilirubin 0.4 mg/dL (0.2-1.0) Aspartate Amino Transf (AST/SGOT) 56 U/L (15-37) Alanine Aminotransferase (ALT/SGPT) 62 U/L (16-63) Alkaline Phosphatase 77 U/L (46-116) Total Protein 5.6 g/dL (6.4-8.2) Albumin 2.2 g/dL (3.4-5.0) Albumin/Globulin Ratio 0.6 (1.0-1.7) Microbiology 03/24/21 Blood Culture - Final, Complete Medications Current Medications Ringer's Solution 500 ml @ 500 mls/hr 1X ONCE IV Last administered on 03/24/21at 12:45; Start 03/24/21 at 12:45; Stop 03/24/21 at 13:44; Status DC Ringer's Solution 500 ml @ 500 mls/hr 1X ONCE IV Last administered on 03/24/21at 14:00; Start 03/24/21 at 14:00; Stop 03/24/21 at 14:59; Status DC Fentanyl Citrate (Fentanyl 2ml Vial) 75 mcg 1X ONCE IVP Last administered on 03/24/21at 15:30; Start 03/24/21 at 15:30; Stop 03/24/21 at 15:31; Status DC Fentanyl Citrate (Fentanyl 2ml Vial) 100 mcg STK-MED ONCE .ROUTE ; Start 03/24/21 at 15:29; Stop 03/24/21 at 15:29; Status DC Ceftriaxone Sodium (Rocephin) 2 gm 1X ONCE IVP Last administered on 03/24/21at 16:30; Start 03/24/21 at 16:30; Stop 03/24/21 at 16:31; Status DC Azithromycin 250 ml @ 250 mls/hr 1X ONCE IV Last administered on 03/24/21at 16:30; Start 03/24/21 at 16:30; Stop 03/24/21 at 17:29; Status DC Ringer's Solution 500 ml @ 500 mls/hr 1X ONCE IV Last administered on 03/24/21at 16:30; Start 03/24/21 at 16:30; Stop 03/24/21 at 17:29; Status DC Ondansetron HCl (Zofran) 4 mg PRN Q8HRS PRN IVP NAUSEA/VOMITING; Start 03/24/21 at 16:30; Stop 03/25/21 at 16:29; Status DC Fentanyl Citrate (Fentanyl 2ml Vial) 50 mcg PRN Q2HR PRN IVP PAIN Last administered on 03/25/21at 08:36; Start 03/24/21 at 16:30; Stop 03/25/21 at 16:29; Status DC Acetaminophen (Tylenol) 650 mg PRN Q4HRS PRN PO FEVER > 100.3'F; Start 03/24/21 at 16:30; Stop 03/24/21 at 16:27; Status DC Acetaminophen (Tylenol) 1,000 mg 1X ONCE PO Last administered on 03/24/21at 16:30; Start 03/24/21 at 16:30; Stop 03/24/21 at 16:31; Status DC Ceftriaxone Sodium (Rocephin) 1 gm Q24H IVP Last administered on 03/26/21at 17:58; Start 03/25/21 at 17:00 Albuterol/ Ipratropium (Duoneb) 3 ml RTQID NEB Last administered on 03/27/21at 05:38; Start 03/24/21 at 20:00 Acetaminophen (Tylenol) 650 mg PRN Q6HRS PRN PO MILD PAIN / TEMP > 100.3'F Last administered on 03/27/21 01:09; Start 03/24/21 at 23:45 Aspirin (Aspirin Chewable) 81 mg DAILY PO Last administered on 03/27/21 09:09; Start 03/25/21 at 09:00 Bupropion HCl (Wellbutrin Xl) 150 mg BID PO Last administered on 03/27/21 09:10; Start 03/25/21 at 09:00 Vitamin D (Vitamin D3) 2,000 unit DAILY PO Last administered on 03/27/21 09:10; Start 03/25/21 at 09:00 Metoprolol Tartrate (Lopressor) 50 mg BID PO Last administered on 03/27/21 09:09; Start 03/25/21 at 09:00 Tamsulosin HCl (Flomax) 0.4 mg HS PO Last administered on 03/26/21 20:42; Start 03/25/21 at 21:00 Non-Formulary Medication (Albuterol Sulfate (Albuterol Sulfate Neb Soln)) 1 vial BID NEB ; Start 03/25/21 at 09:00; Stop 03/25/21 at 00:23; Status DC Non-Formulary Medication (Alendronate Sodium ) 1 tab WEEKLY PO ; Start 03/31/21 at 09:00; Status UNV Budesonide (Pulmicort) 0.5 mg RTBID NEB Last administered on 03/27/21at 05:38; Start 03/25/21 at 08:00 Fluticasone Propionate (Flonase) 2 spray DAILY NS Last administered on 03/27/21 09:09; Start 03/25/21 at 09:00 Meloxicam (Mobic) 15 mg DAILY PO Last administered on 03/27/21 09:10; Start 03/25/21 at 09:00 Pantoprazole Sodium (Protonix) 40 mg DAILYAC PO Last administered on 03/27/21 09:09; Start 03/25/21 at 07:30 Atorvastatin Calcium (Lipitor) 80 mg QHS PO Last administered on 03/26/21 20:42; Start 03/25/21 at 21:00 Non-Formulary Medication (Tiotropium [place] (Spiriva)) 1 cap DAILY IH ; Start 03/25/21 at 09:00; Status UNV [place] HCl (Salagen) 5 mg TID PO Last administered on 03/27/21at 09:09; Start 03/25/21 at 09:00 Azithromycin (Zithromax) 250 mg DAILY PO Last administered on 03/27/21at 09:10; Start 03/25/21 at 11:00 Sodium Chloride 1,000 ml @ 85 mls/hr [id number] IV Last administered on 03/27/21at 00:41; Start 03/25/21 at 13:00 Lactobacillus Rhamnosus (Culturelle) 1 cap BID PO Last administered on 03/27/21at 09:09; Start 03/25/21 at 13:00 Iohexol (Omnipaque 300 Mg/ml) 60 ml 1X ONCE IV ; Start 03/25/21 at 13:00; Stop 03/25/21 at 13:01; Status DC Info (CONTRAST GIVEN -- Rx MONITORING) 1 each PRN DAILY PRN MC SEE COMMENTS; Start 03/25/21 at 13:00; Stop 03/27/21 at 12:59 Albuterol Sulfate (Ventolin Neb Soln) 2.5 mg PRN Q1HR PRN NEB SHORTNESS OF BREATH; Start 03/26/21 at 11:00 Non-Formulary Medication (Albuterol (Proair Hfa) Inhaler) 1 ea PRN Q1HR PRN INH SHORTNESS OF BREATH; Start 03/26/21 at 11:30; Stop 03/26/21 at 11:18; Status DC Non-Formulary Medication (Albuterol (Proair Hfa) Inhaler) 1 ea PRN Q1HR PRN INH SHORTNESS OF BREATH; Start 03/26/21 at 11:30 Nystatin (Nystatin Oral Susp) 5 ml [id number] Last administered on 03/27/21at 09:09; Start 03/26/21 at 18:30 Active Scripts Active Reported NITROGLYCERIN SubLingual (Nitroglycerin) 0.4 Mg Tab.subl 1 Tab SL UD PRN 1st sign of attack; may repeat every 5 mins; if pain persists after 3 in 15 min, medical attention is recommended Albuterol Sulfate Neb Soln (Albuterol Sulfate) 1.25 Mg/3 Ml Vial.neb 1 Vial NEB BID Flonase Allergy Relief (Fluticasone Propionate) 9.9 Ml [place].susp 2 Sprays NS DAILY Wixela 500-50 Inhub (Fluticasone Propion/Salmeterol) 1 Each Blst.w.dev 1 Each IH BID Spiriva (Tiotropium [place]) 18 Mcg Cap.w.dev 1 Cap IH DAILY Alendronate Sodium 70 Mg Tablet 1 Tab PO WEEKLY Prilosec Otc (Omeprazole Magnesium) 20 Mg Tablet.dr 1 Tab PO DAILY 30 Days Vitamin D3 (Vitamin D) 25 Mcg Tablet 50 Mcg PO DAILY 1,000 UNITS = 25 MCG Rosuvastatin Calcium 20 Mg Tablet 20 Mg PO HS Meloxicam 15 Mg Tablet 1 Tab PO DAILY 30 Days Metoprolol Tartrate 50 Mg Tablet 1 Tab PO BID Aspirin 81 Mg Tab.chew 1 Tab PO DAILY Salagen (Pilocarp[place] Hcl) 5 Mg Tablet 1 Tab PO TID 30 Days Bupropion Xl (Bupropion Hcl) 150 Mg Tab.er.24h 1 Tab PO BID Flomax (Tamsulosin Hcl) 0.4 Mg Cap.er.24h 1 Cap PO HS Vitals/I & O Vital Sign - Last 24 Hours 03/26/21 03/26/21 03/26/21 03/26/21 11:36 15:00 15:49 19:05 Temp 98.1 98.1 Pulse 105 Resp 20 B/P (MAP) 115/48 (70) Pulse Ox 95 94 O2 Delivery Nasal Cannula Nasal Cannula Nasal Cannula Nasal Cannula O2 Flow Rate 3.0 2.0 3.0 2.0 03/26/21 03/26/21 03/26/21 03/26/21 19:49 20:42 20:48 22:55 Temp 97.3 97.4 97.3 97.4 Pulse 61 113 120 Resp 22 24 B/P (MAP) 116/71 (86) 116/71 138/79 (98) Pulse Ox 97 94 95 O2 Delivery Nasal Cannula Nasal Cannula Nasal Cannula O2 Flow Rate 3.0 3.0 3.0 03/27/21 03/27/21 03/27/21 03/27/21 03:35 05:38 07:00 08:00 Temp 97.7 97.9 97.7 97.9 Pulse 105 100 Resp 22 18 B/P (MAP) 123/76 (92) 145/72 (96) Pulse Ox 93 97 94 O2 Delivery Nasal Cannula Nasal Cannula Nasal Cannula Nasal Cannula O2 Flow Rate 3.0 3.0 3.0 2.0 03/27/21 09:09 Pulse 100 B/P (MAP) 145/72 Intake and Output 03/26/21 03/26/21 03/27/21 15:00 23:00 07:00 Intake Total 480 ml 200 ml 1200 ml Output Total 550 ml Balance 480 ml 200 ml 650 ml Justicifation of Admission Dx: Justifications for Admission: Justification of Admission Dx: Yes Sepsis: Bacteremia CHANDA PAUL MD Mar 27, 2021 11:22
[2021-03-27 12:29] LABS: % BANDS 10 % (0-9); % BASOS 1 % (0-3); % EOS 8 % (0-5); % LYMPHS 5 % (24-48); % MONOS 4 % (0-10); % SEGS 72 % (35-66)
[2021-03-27 12:30] LABS: PLT ESTIMATE ADEQUATE (ADEQUATE); TOXIC GRANULATION PRESENT
--- NOTE | 2021-03-27 12:59 | PDOC3 ---
Discharge Summary Date of Admission: Mar 24, 2021 Date of Discharge: Mar 27, 2021 Follow-Up: 3-5 days Admitting Diagnosis comment: HISTORY OF PRESENT ILLNESS: 75-year-old male who presented to the ER with shortness of breath and cough. It has been occurring since 7:00 9-2 He increased his home meds, but has not working. The pain makes it worse. He does have associated chest pain, rated at 6/10. The patient does have a history of bypass surgery. We did imaging that showing he has pneumonia in the right middle lobe. His COVID test is negative. I discussed the case with private eye the patient, give him IV antibiotics and breathing treatments, oxygen. discharge dx complications none d/c condition good consults id, pulmonary Chief Complaint ASSESSMENT AND PLAN: Pneumonia. SEPSIS Acute hypoxic resp failure Underweight Moderate bilateral lung emphysema Blood culture, 1 out of 4 gram-positive sherif. //contaminant. Chronic obstructive pulmonary disease PLAN admitted. IV antibiotics, d/c home today po augmentin, Zithromax breathing treatments, oxygen support, home meds, deep venous thrombosis prophylaxis. Full code. Long-term prognosis is guarded. consult Pulmonary Medicine Continue Rocephin, azithromycin, IV d/w RN d/c planning 33 min History of Present Illness History of Present Illness CHIEF COMPLAINT: Shortness of breath and cough. HISTORY OF PRESENT ILLNESS: 75-year-old male who presented to the ER with shortness of breath and cough. It has been occurring since 7:00 9-2 He increased his home meds, but has not working. The pain makes it worse. He does have associated chest pain, rated at 6/10. The patient does have a history of bypass surgery. We did imaging that showing he has pneumonia in the right middle lobe. His COVID test is negative. I discussed the case with private eye the patient, give him IV antibiotics and breathing treatments, oxygen. 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 ALLERGIES: None. FAMILY HISTORY: Diabetes. SOCIAL HISTORY: He smokes. No drink or drugs. MEDICATIONS: Reviewed, please refer to the MRAD. REVIEW OF SYSTEMS: Unable to obtain. Vitals Vitals Vital Signs Date Time Temp Pulse Resp B/P (MAP) Pulse Ox O2 Delivery O2 Flow Rate FiO2 03/27/21 09:09 100 145/72 03/27/21 08:00 Nasal Cannula 2.0 03/27/21 07:00 97.9 18 94 97.9 Physical Exam Physical Exam GEN alert awake HEENT: NAD. NECK: Supple, no JVP, no lymphadenopathy. LUNGS: Clear. HEART: S1, S2 regular. ABDOMEN: Soft, nontender. No organomegaly. EXTREMITIES: No edema or cyanosis. SKIN: Unremarkable. NEUROLOGIC: The patient is alert, awake, and appropriate. No focal deficit. The patient does have memory deficit. General: Alert, Oriented X3, Cooperative, No acute distress Heart: Regular rate Lungs: Crackles Abdomen: Normal bowel sounds, No tenderness Extremities: No clubbing, No cyanosis, No edema, No tenderness/swelling Skin: No significant lesion FINAL DIAGNOSIS Problems Medical Problems: (1) Community acquired pneumonia Status: Acute Brief Hospital Course Mr. Faustin is a 75 old [sex] who presented with [pneumonia ] CONDITION AT DISCHARGE: Improved Discharge Medications Current Medications Ringer's Solution 500 ml @ 500 mls/hr 1X ONCE IV Last administered on at 12:45; Start 03/24/21 at 12:45; Stop 03/24/21 at 13:44; Status DC Ringer's Solution 500 ml @ 500 mls/hr 1X ONCE IV Last administered on 03/24/21at 14:00; Start 03/24/21 at 14:00; Stop 03/24/21 at 14:59; Status DC Fentanyl Citrate (Fentanyl 2ml Vial) 75 mcg 1X ONCE IVP Last administered on 03/24/21at 15:30; Start 03/24/21 at 15:30; Stop 03/24/21 at 15:31; Status DC Fentanyl Citrate (Fentanyl 2ml Vial) 100 mcg STK-MED ONCE .ROUTE ; Start 03/24/21 at 15:29; Stop 03/24/21 at 15:29; Status DC Ceftriaxone Sodium (Rocephin) 2 gm 1X ONCE IVP Last administered on 03/24/21at 16:30; Start 03/24/21 at 16:30; Stop 03/24/21 at 16:31; Status DC Azithromycin 250 ml @ 250 mls/hr 1X ONCE IV Last administered on 03/24/21at 16:30; Start 03/24/21 at 16:30; Stop 03/24/21 at 17:29; Status DC Ringer's Solution 500 ml @ 500 mls/hr 1X ONCE IV Last administered on 03/24/21at 16:30; Start 03/24/21 at 16:30; Stop 03/24/21 at 17:29; Status DC Ondansetron HCl (Zofran) 4 mg PRN Q8HRS PRN IVP NAUSEA/VOMITING; Start 03/24/21 at 16:30; Stop 03/25/21 at 16:29; Status DC Fentanyl Citrate (Fentanyl 2ml Vial) 50 mcg PRN Q2HR PRN IVP PAIN Last administered on 03/25/21at 08:36; Start 03/24/21 at 16:30; Stop 03/25/21 at 16:29; Status DC Acetaminophen (Tylenol) 650 mg PRN Q4HRS PRN PO FEVER > 100.3'F; Start 03/24/21 at 16:30; Stop 03/24/21 at 16:27; Status DC Acetaminophen (Tylenol) 1,000 mg 1X ONCE PO Last administered on 03/24/21at 16:30; Start 03/24/21 at 16:30; Stop 03/24/21 at 16:31; Status DC Ceftriaxone Sodium (Rocephin) 1 gm Q24H IVP Last administered on 03/26/21at 17:58; Start 03/25/21 at 17:00 Albuterol/ Ipratropium (Duoneb) 3 ml RTQID NEB Last administered on 03/27/21at 12:08; Start 03/24/21 at 20:00 Acetaminophen (Tylenol) 650 mg PRN Q6HRS PRN PO MILD PAIN / TEMP > 100.3'F Last administered on 03/27/21 01:09; Start 03/24/21 at 23:45 Aspirin (Aspirin Chewable) 81 mg DAILY PO Last administered on 03/27/21 09:09; Start 03/25/21 at 09:00 Bupropion HCl (Wellbutrin Xl) 150 mg BID PO Last administered on 03/27/21 09:10; Start 03/25/21 at 09:00 Vitamin D (Vitamin D3) 2,000 unit DAILY PO Last administered on 9/5/21at 09:10; Start 03/25/21 at 09:00 Metoprolol Tartrate (Lopressor) 50 mg BID PO Last administered on 03/27/21 09:09; Start 03/25/21 at 09:00 Tamsulosin HCl (Flomax) 0.4 mg HS PO Last administered on 03/26/21at 20:42; Start 03/25/21 at 21:00 Non-Formulary Medication (Albuterol Sulfate (Albuterol Sulfate Neb Soln)) 1 vial BID NEB ; Start 03/25/21 at 09:00; Stop 03/25/21 at 00:23; Status DC Non-Formulary Medication (Alendronate Sodium ) 1 tab WEEKLY PO ; Start 03/31/21 at 09:00; Status UNV Budesonide (Pulmicort) 0.5 mg RTBID NEB Last administered on 03/27/21at 05:38; Start 03/25/21 at 08:00 Fluticasone Propionate (Flonase) 2 spray DAILY NS Last administered on 03/27/21 09:09; Start 03/25/21 at 09:00 Meloxicam (Mobic) 15 mg DAILY PO Last administered on 03/27/21 09:10; Start 03/25/21 at 09:00 Pantoprazole Sodium (Protonix) 40 mg DAILYAC PO Last administered on 03/27/21 09:09; Start 03/25/21 at 07:30 Atorvastatin Calcium (Lipitor) 80 mg QHS PO Last administered on 03/26/21 20:42; Start 03/25/21 at 21:00 Non-Formulary Medication (Tiotropium [place] (Spiriva)) 1 cap DAILY IH ; Start 03/25/21 at 09:00; Status UNV Pilocarpine HCl (Salagen) 5 mg TID PO Last administered on 03/27/21 09:09; Start 03/25/21 at 09:00 Azithromycin (Zithromax) 250 mg DAILY PO Last administered on 03/27/21 09:10; Start 03/25/21 at 11:00 Sodium Chloride 1,000 ml @ 85 mls/hr [id number] IV Last administered on 03/27/21at 11:46; Start 03/25/21 at 13:00 Lactobacillus Rhamnosus (Culturelle) 1 cap BID PO Last administered on 03/27/21at 09:09; Start 03/25/21 at 13:00 Iohexol (Omnipaque 300 Mg/ml) 60 ml 1X ONCE IV ; Start 03/25/21 at 13:00; Stop 03/25/21 at 13:01; Status DC Info (CONTRAST GIVEN -- Rx MONITORING) 1 each PRN DAILY PRN MC SEE COMMENTS; Start 03/25/21 at 13:00; Stop 03/27/21 at 12:59 Albuterol Sulfate (Ventolin Neb Soln) 2.5 mg PRN Q1HR PRN NEB SHORTNESS OF BREATH; Start 03/26/21 at 11:00 Non-Formulary Medication (Albuterol (Proair Hfa) Inhaler) 1 ea PRN Q1HR PRN INH SHORTNESS OF BREATH; Start 03/26/21 at 11:30; Stop 03/26/21 at 11:18; Status DC Non-Formulary Medication (Albuterol (Proair Hfa) Inhaler) 1 ea PRN Q1HR PRN INH SHORTNESS OF BREATH; Start 03/26/21 at 11:30 Nystatin (Nystatin Oral Susp) 5 ml [id number] Last administered on 03/27/21at 1 1:46; Start 03/26/21 at 18:30 Active Scripts Active Reported NITROGLYCERIN SubLingual (Nitroglycerin) 0.4 Mg Tab.subl 1 Tab SL UD PRN 1st sign of attack; may repeat every 5 mins; if pain persists after 3 in 15 min, medical attention is recommended Albuterol Sulfate Neb Soln (Albuterol Sulfate) 1.25 Mg/3 Ml Vial.neb 1 Vial NEB BID Flonase Allergy Relief (Fluticasone Propionate) 9.9 Ml [place].susp 2 Sprays NS DAILY Wixela 500-50 Inhub (Fluticasone Propion/Salmeterol) 1 Each Blst.w.dev 1 Each IH BID Spiriva (Tiotropium [place]) 18 Mcg Cap.w.dev 1 Cap IH DAILY Alendronate Sodium 70 Mg Tablet 1 Tab PO WEEKLY Prilosec Otc (Omeprazole Magnesium) 20 Mg Tablet.dr 1 Tab PO DAILY 30 Days Vitamin D3 (Vitamin D) 25 Mcg Tablet 50 Mcg PO DAILY 1,000 UNITS = 25 MCG Rosuvastatin Calcium 20 Mg Tablet 20 Mg PO HS Meloxicam 15 Mg Tablet 1 Tab PO DAILY 30 Days Metoprolol Tartrate 50 Mg Tablet 1 Tab PO BID Aspirin 81 Mg Tab.chew 1 Tab PO DAILY Salagen (Pilocarpine Hcl) 5 Mg Tablet 1 Tab PO TID 30 Days Bupropion Xl (Bupropion Hcl) 150 Mg Tab.er.24h 1 Tab PO BID Flomax (Tamsulosin Hcl) 0.4 Mg Cap.er.24h 1 Cap PO HS Vital Signs Vital Signs Date Time Temp Pulse Resp B/P (MAP) Pulse Ox O2 Delivery O2 Flow Rate FiO2 03/27/21 12:12 98 Nasal Cannula 3.0 03/27/21 11:00 97.9 100 18 145/72 (96) 97.9 Labs Laboratory Tests Test 03/27/21 05:30 White Blood Count 10.6 x10^3/uL (4.0-11.0) Red Blood Count 3.46 x10^6/uL (4.30-5.70) Hemoglobin 10.8 g/dL (13.0-17.5) Hematocrit 31.5 % (39.0-53.0) Mean Corpuscular Volume 91 fL (79-100) Mean Corpuscular Hemoglobin 31 pg (25-35) Mean Corpuscular Hemoglobin Concent 34 g/dL (31-37) Red Cell Distribution Width 14.9 % (11.5-14.5) Platelet Count 144 x10^3/uL (140-400) Neutrophils (%) (Auto) 87 % (31-73) Lymphocytes (%) (Auto) 6 % (24-48) Monocytes (%) (Auto) 4 % (0-9) Eosinophils (%) (Auto) 4 % (0-3) Basophils (%) (Auto) 0 % (0-3) Neutrophils # (Auto) 9.2 x10^3/uL (1.8-7.7) Lymphocytes # (Auto) 0.6 x10^3/uL (1.0-4.8) Monocytes # (Auto) 0.4 x10^3/uL (0.0-1.1) Eosinophils # (Auto) 0.4 x10^3/uL (0.0-0.7) Basophils # (Auto) 0.0 x10^3/uL (0.0-0.2) Segmented Neutrophils % 72 % (35-66) Band Neutrophils % 10 % (0-9) Lymphocytes % 5 % (24-48) Monocytes % 4 % (0-10) Eosinophils % 8 % (0-5) Basophils % 1 % (0-3) Toxic Granulation Present Dohle Bodies Present Platelet Estimate Adequate (ADEQUATE) Sodium Level 139 mmol/L (136-145) Potassium Level 3.3 mmol/L (3.5-5.1) Chloride Level 106 mmol/L (98-107) Carbon Dioxide Level 27 mmol/L (21-32) Anion Gap 6 (6-14) Blood Urea Nitrogen 20 mg/dL (8-26) Creatinine 1.0 mg/dL (0.7-1.3) Estimated GFR (Cockcroft-Gault) 72.5 BUN/Creatinine Ratio 20 (6-20) Glucose Level 128 mg/dL (70-99) Calcium Level 7.5 mg/dL (8.5-10.1) Total Bilirubin 0.4 mg/dL (0.2-1.0) Aspartate Amino Transf (AST/SGOT) 56 U/L (15-37) Alanine Aminotransferase (ALT/SGPT) 62 U/L (16-63) Alkaline Phosphatase 77 U/L (46-116) Total Protein 5.6 g/dL (6.4-8.2) Albumin 2.2 g/dL (3.4-5.0) Albumin/Globulin Ratio 0.6 (1.0-1.7) Laboratory Tests Test 03/27/21 05:30 White Blood Count 10.6 x10^3/uL (4.0-11.0) Red Blood Count 3.46 x10^6/uL (4.30-5.70) Hemoglobin 10.8 g/dL (13.0-17.5) Hematocrit 31.5 % (39.0-53.0) Mean Corpuscular Volume 91 fL (79-100) Mean Corpuscular Hemoglobin 31 pg (25-35) Mean Corpuscular Hemoglobin Concent 34 g/dL (31-37) Red Cell Distribution Width 14.9 % (11.5-14.5) Platelet Count 144 x10^3/uL (140-400) Neutrophils (%) (Auto) 87 % (31-73) Lymphocytes (%) (Auto) 6 % (24-48) Monocytes (%) (Auto) 4 % (0-9) Eosinophils (%) (Auto) 4 % (0-3) Basophils (%) (Auto) 0 % (0-3) Neutrophils # (Auto) 9.2 x10^3/uL (1.8-7.7) Lymphocytes # (Auto) 0.6 x10^3/uL (1.0-4.8) Monocytes # (Auto) 0.4 x10^3/uL (0.0-1.1) Eosinophils # (Auto) 0.4 x10^3/uL (0.0-0.7) Basophils # (Auto) 0.0 x10^3/uL (0.0-0.2) Segmented Neutrophils % 72 % (35-66) Band Neutrophils % 10 % (0-9) Lymphocytes % 5 % (24-48) Monocytes % 4 % (0-10) Eosinophils % 8 % (0-5) Basophils % 1 % (0-3) Toxic Granulation Present Dohle Bodies Present Platelet Estimate Adequate (ADEQUATE) Sodium Level 139 mmol/L (136-145) Potassium Level 3.3 mmol/L (3.5-5.1) Chloride Level 106 mmol/L (98-107) Carbon Dioxide Level 27 mmol/L (21-32) Anion Gap 6 (6-14) Blood Urea Nitrogen 20 mg/dL (8-26) Creatinine 1.0 mg/dL (0.7-1.3) Estimated GFR (Cockcroft-Gault) 72.5 BUN/Creatinine Ratio 20 (6-20) Glucose Level 128 mg/dL (70-99) Calcium Level 7.5 mg/dL (8.5-10.1) Total Bilirubin 0.4 mg/dL (0.2-1.0) Aspartate Amino Transf (AST/SGOT) 56 U/L (15-37) Alanine Aminotransferase (ALT/SGPT) 62 U/L (16-63) Alkaline Phosphatase 77 U/L (46-116) Total Protein 5.6 g/dL (6.4-8.2) Albumin 2.2 g/dL (3.4-5.0) Albumin/Globulin Ratio 0.6 (1.0-1.7) Allergies Allergies Coded Allergies Type Severity Reaction Last Updated Verified No Known Drug Allergies 03/24/21 No Disposition/Orders: D/C to Home Justicifation of Admission Dx: Justifications for Admission: Justification of Admission Dx: Yes Sepsis: Bacteremia CHANDA PAUL MD Mar 27, 2021 12:59
[2021-03-27] MEDS ORDERED: ACET325T21 PO (13:02)
[2021-03-27] MEDS ORDERED: AMOX1TAB58 PO (13:02)
[2021-03-27] MEDS ORDERED: NYST100054 SWSW (13:02)
[2021-03-27] MEDS ORDERED: AZIT250T6 PO (13:02)
[2021-03-27] MEDS ORDERED: LACT1CAP19 PO (13:02)
--- NOTE | 2021-03-27 13:04 | SNU/HH DC ---
DISCHARGE WITH HOME HEALTH DISCHARGE INFORMATION: Discharge Date: Mar 27, 2021 Final Diagnosis: Problems Medical Problems: (1) Community acquired pneumonia Status: Acute Condition on Discharge: Stable CODE STATUS: Code Status: Full HOME HEALTH: Face to Face: I certify this patient is under my care and that I, or a nurse practitioner or physician's physician assistant surgery working with me, had a face to face encounter that meets the physician face to face encounter requirements with this patient on []. Medical Complications: COPD Custodial For: Admin/Educate Injections, Assess Cardiopulm Status, Assess & Educate Safety, Assess/Skilled Observatio, Medication Management RN For Eval/Treatment: Yes Physical Therapy For: Evalulation/Treatment Occupational Therapy For: Evaluation/Treatment Speech Language Pathology For: Evaluation/Treatment Home Health Aide For: Self-care SCIENCE SPECIALIST For: Community Resources Pt Meets Homebound Status: Fatigue w/ amb., Limited distance walking POST DISCHARGE ORDERS: Activity Instructions for Disc: Activity as tolerated DIET AFTER DISCHARGE: Cardiac FOLLOW-UP: PCP to follow Home Health: see pcp in 3-10 days TREATMENT/EQUIPMENT ORDERS: Adaptive Equipment Issued: None Discharge Respiratory Equipmen: Oxygen, Nebulizer CERTIFICATION STATEMENT: Certification Statement: Certification Statement: Based on the above finding, I certify that this patient is confined to the home and needs intermittent alf care, physical therapy and/or speech therapy, or continues to need occupational therapy.~ This patient is under my care, and I have initiated the establishment of the plan of care.~ This patient will be followed by myself or a community physician who will periodically review the plan of care. Home Meds Active Scripts Amoxicillin/Potassium Clav (AUGMENTIN 500-125 TABLET) 1 Each Tablet, 1 TAB PO BID for infection for 10 Days, #20 TAB 0 Refills Prov:CHANDA PAUL MD 03/27/21 Lactobacillus Rhamnosus Gg (CULTURELLE) 1 Each Cap.sprink, 1 CAP PO BID for supplement for 30 Days, #60 CAP Prov:CHANDA PAUL MD 03/27/21 Acetaminophen (ACETAMINOPHEN) 325 Mg Tablet, 650 MG PO PRN Q6HRS PRN for MILD PAIN / TEMP > 100.3'F for 14 Days, #60 TAB Prov:CHANDA PAUL MD 03/27/21 Nystatin (NYSTATIN) 100,000 Unit/1 Ml Oral.susp, 5 ML SWSW [id number] for thrush for 10 Days, #240 MISC Prov:CHANDA PAUL MD 03/27/21 Azithromycin (AZITHROMYCIN TABLET) 250 Mg Tablet, 250 MG PO DAILY for pneumonia for 7 Days, #7 TAB Prov:CHANDA PAUL MD 03/27/21 Reported Medications Nitroglycerin (NITROGLYCERIN SubLingual) 0.4 Mg Tab.subl, 1 TAB SL UD PRN for chest pain, #25 TAB 0 Refills 1st sign of attack; may repeat every 5 mins; if pain persists after 3 in 15 min, medical attention is recommended 03/24/21 Albuterol Sulfate (ALBUTEROL SULFATE NEB SOLN) 1.25 Mg/3 Ml Vial.neb, 1 VIAL NEB BID for copd, #150 ML 03/24/21 Fluticasone Propionate (Flonase Allergy Relief) 9.9 Ml [place].susp, 2 SPRAYS NS DAILY for allergies, ML 03/24/21 Fluticasone Propion/Salmeterol (Wixela 500-50 Inhub) 1 Each Blst.w.dev, 1 EACH IH BID for copd 03/24/21 Tiotropium [place] (SPIRIVA) 18 Mcg Cap.w.dev, 1 CAP IH DAILY for COPD, #30 CAP 3 Refills 03/24/21 Alendronate Sodium (ALENDRONATE SODIUM) 70 Mg Tablet, 1 TAB PO WEEKLY for ost eoporosis, #4 TAB 3 Refills 03/24/21 Omeprazole Magnesium (PRILOSEC OTC) 20 Mg Tablet.dr, 1 TAB PO DAILY for gerd for 30 Days, #30 TAB 0 Refills 03/24/21 Cholecalciferol (Vitamin D3) (Vitamin D3 ) 25 Mcg Tablet, 50 MCG PO DAILY for SUPPLEMENT, TAB 1,000 UNITS = 25 MCG 03/24/21 Rosuvastatin Calcium (Rosuvastatin Calcium) 20 Mg Tablet, 20 MG PO HS for HLD, TAB 03/24/21 Meloxicam (MELOXICAM) 15 Mg Tablet, 1 TAB PO DAILY for antiinflammatory for 30 Days, #30 TAB 0 Refills 03/24/21 Metoprolol Tartrate (METOPROLOL TARTRATE) 50 Mg Tablet, 1 TAB PO BID for HTN, #60 TAB 5 Refills 03/24/21 Aspirin (ASPIRIN) 81 Mg Tab.chew, 1 TAB PO DAILY for cardiac health, #30 TAB 3 Refills 03/24/21 Pilocarpine Hcl (SALAGEN) 5 Mg Tablet, 1 TAB PO TID for dry mouth for 30 Days, #90 TAB 0 Refills 03/24/21 Bupropion Hcl (BUPROPION XL) 150 Mg Tab.er.24h, 1 TAB PO BID for depression, #30 TAB 2 Refills 03/24/21 Tamsulosin Hcl (FLOMAX) 0.4 Mg Cap.er.24h, 1 CAP PO HS for retention, #30 CAP 11 Refills 03/24/21 CHANDA PAUL MD Mar 27, 2021 13:04
--- NOTE | 2021-03-27 13:17 | PDOC ---
Infectious Disease Note Subjective Subjective Pt feels better afebrile last 24 hrs On 3L o2 by NC Vital Sign Vital Signs Vital Signs Date Time Temp Pulse Resp B/P (MAP) Pulse Ox O2 Delivery O2 Flow Rate FiO2 03/27/21 12:12 98 Nasal Cannula 3.0 03/27/21 11:00 97.9 100 18 145/72 (96) 97.9 Physical Exam PHYSICAL EXAM GEN alert awake HEENT: NAD. NECK: Supple, no JVP, no lymphadenopathy. LUNGS: Clear. HEART: S1, S2 regular. ABDOMEN: Soft, nontender. No organomegaly. EXTREMITIES: No edema or cyanosis. SKIN: Unremarkable. NEUROLOGIC: The patient is alert, awake, and appropriate. No focal deficit. The patient does have memory deficit. Labs Lab Laboratory Tests Test 03/27/21 05:30 White Blood Count 10.6 x10^3/uL (4.0-11.0) Red Blood Count 3.46 x10^6/uL (4.30-5.70) Hemoglobin 10.8 g/dL (13.0-17.5) Hematocrit 31.5 % (39.0-53.0) Mean Corpuscular Volume 91 fL (79-100) Mean Corpuscular Hemoglobin 31 pg (25-35) Mean Corpuscular Hemoglobin Concent 34 g/dL (31-37) Red Cell Distribution Width 14.9 % (11.5-14.5) Platelet Count 144 x10^3/uL (140-400) Neutrophils (%) (Auto) 87 % (31-73) Lymphocytes (%) (Auto) 6 % (24-48) Monocytes (%) (Auto) 4 % (0-9) Eosinophils (%) (Auto) 4 % (0-3) Basophils (%) (Auto) 0 % (0-3) Neutrophils # (Auto) 9.2 x10^3/uL (1.8-7.7) Lymphocytes # (Auto) 0.6 x10^3/uL (1.0-4.8) Monocytes # (Auto) 0.4 x10^3/uL (0.0-1.1) Eosinophils # (Auto) 0.4 x10^3/uL (0.0-0.7) Basophils # (Auto) 0.0 x10^3/uL (0.0-0.2) Segmented Neutrophils % 72 % (35-66) Band Neutrophils % 10 % (0-9) Lymphocytes % 5 % (24-48) Monocytes % 4 % (0-10) Eosinophils % 8 % (0-5) Basophils % 1 % (0-3) Toxic Granulation Present Dohle Bodies Present Platelet Estimate Adequate (ADEQUATE) Sodium Level 139 mmol/L (136-145) Potassium Level 3.3 mmol/L (3.5-5.1) Chloride Level 106 mmol/L (98-107) Carbon Dioxide Level 27 mmol/L (21-32) Anion Gap 6 (6-14) Blood Urea Nitrogen 20 mg/dL (8-26) Creatinine 1.0 mg/dL (0.7-1.3) Estimated GFR (Cockcroft-Gault) 72.5 BUN/Creatinine Ratio 20 (6-20) Glucose Level 128 mg/dL (70-99) Calcium Level 7.5 mg/dL (8.5-10.1) Total Bilirubin 0.4 mg/dL (0.2-1.0) Aspartate Amino Transf (AST/SGOT) 56 U/L (15-37) Alanine Aminotransferase (ALT/SGPT) 62 U/L (16-63) Alkaline Phosphatase 77 U/L (46-116) Total Protein 5.6 g/dL (6.4-8.2) Albumin 2.2 g/dL (3.4-5.0) Albumin/Globulin Ratio 0.6 (1.0-1.7) Micro Microbiology 03/24/21 Blood Culture - Final, Complete Objective Assessment 1. Community acquired pneumonia. 2. Leukopenia.COVID negative, Improved 3. Fever. 4. Coronary artery disease. 5. Blood culture, 1 out of 4 gram-positive sherif. It is a contaminant. 6. Chronic obstructive pulmonary disease. 7. Tobaccoism. 8. Dementia. Plan Plan of Care Transition to po antibiotics when ready for dc on Rocephin, azithromycin, supportive care KIKI DAMICO MD Mar 27, 2021 13:17
--- NOTE | 2021-03-27 15:00 | NUR ---
Discharge Note: [facility] [address] [place] [address] Discharge instructions and discharge home medications reviewed with Patient and a copy given. All questions have been answered and understanding verbalized. The following instructions and handouts were given: f/u with pcp within two weeks. Discontinued lines and drains: Peripheral IV intact. Patient discharged to Home or Self Care with Family Member via Wheelchair.
[2021-03-31] MEDS ORDERED: NON FORMULARY ITEM (Alendronate Sodium 1 TAB) PO SCH (09:00)
== END 2021-03-27 15:00 | disposition home or self-care (01) | DRG 871 ==
LOC: ER 12:00 → ED HOLD 16:30 → 5 SOUTH 17:17
PROVIDERS: ADMIT Internal Medicine; ATTEND Internal Medicine
DX: A41.9 Sepsis, unspecified organism (principal); J15.6 Pneumonia due to other Gram-negative bacteria; J96.01 Acute respiratory failure with hypoxia; Z68.1 Body mass index [BMI] 19.9 or less, adult; Z20.822 Contact with and (suspected) exposure to COVID-19; E78.5 Hyperlipidemia, unspecified; F03.90 Unspecified dementia, unspecified severity, without behavioral disturbance, psychotic disturbance, mood disturbance, and anxiety; F17.200 Nicotine dependence, unspecified, uncomplicated; F43.10 Post-traumatic stress disorder, unspecified; I10 Essential (primary) hypertension; I25.10 Atherosclerotic heart disease of native coronary artery without angina pectoris; F32.9 Major depressive disorder, single episode, unspecified; K21.9 Gastro-esophageal reflux disease without esophagitis; R63.6 Underweight; J43.9 Emphysema, unspecified; Z83.3 Family history of diabetes mellitus; Z85.828 Personal history of other malignant neoplasm of skin; Z95.1 Presence of aortocoronary bypass graft
CPT/HCPCS: 36415; 71045; 71260; 80048; 80053; 83605; 83880; 84484; 85007; 85025; 85379; 87015; 87040; 87186; 87205; 87426; 93005; 94640; 94760; 96365; 96366; 96375; J0456; J0696; J3010; J7030; J7120; U0003; U0005; 99285-25; G0378; J7626